=== PATIENT | male | born 1955 | race Caucasian/White ===

== ENCOUNTER → 2017-09-14 16:03 | Outpatient (CLI) | payer OTHER, SELFPAY ==
--- NOTE | 2017-09-14 16:06 | DI.RAD.S_ITS ---
PROCEDURE: XR FOOT RT MIN 3V INDICATIONS: heel pain TECHNIQUE: 3 views of the foot were acquired. COMPARISON: None. FINDINGS: Bones: No fractures or dislocations. No suspicious bony lesions. Calcaneal spur is noted. Mild degenerative changes. Soft tissues: No tibiotalar joint effusion. Achilles tendon appears normal. IMPRESSION: No visualized acute fracture or dislocation. However, if clinical concern and/or pain persist, short interval imaging followup in 7-10 days is recommended, as occult injury cannot be definitively excluded. Dictated by: Anna Delgado M.D. on 09/14/2017 at 16:27 Approved by: Anna Delgado M.D. on 09/14/2017 at 16:28
== END ==
PROVIDERS: Family Provider Family Medicine; PCP Family Medicine; Visit Provider Family Medicine
DX: M79.671 Pain in right foot (principal); M77.31 Calcaneal spur, right foot
CPT/HCPCS: 73630

== ENCOUNTER → 2017-09-15 09:28 | Outpatient (CLI) | payer OTHER, SELFPAY ==
[2017-09-15 10:47] LABS: Add Manual Diff / Slide Review NO; Basophils Percent Auto 0.5 % (0-2); Eosinophils Percent Auto 3.4 % (2-4); Hematocrit 43.8 % (41-53); Hemoglobin 15.2 g/dL (13.5-17.5); Lymphocytes Percent Auto 30.4 % (25-40); Mean Corpuscular HGB Conc 34.8 % (30-36); Mean Corpuscular Hemoglobin 30.3 PG (26-34); Mean Corpuscular Volume 87.3 fL (80-100); Neutrophils Absolute Auto 3600 /uL (3000-5900); Neutrophils Percent Auto 53.7 % (50-75); Platelet Count 237 X10^3/uL (150-400); Red Blood Cell Count 5.02 X10^6/uL (4.5-5.9); Red Cell Distribution Width 13.6 % (11.6-14.8); White Blood Cell Count 6.8 X10^3/uL (4.5-11.0)
[2017-09-15 10:49] LABS: Hemoglobin A1C% w Est Avg Glu 6.1 % (4.0-6.0)
[2017-09-15 11:04] LABS: Alanine Aminotransferase 40 IU/L (21-72); Albumin 4.6 g/dL (3.5-5.0); Albumin Globulin Ratio 1.4 (1.0-2.8); Alkaline Phosphatase 70 U/L (38-126); Aspartate Aminotransferase 27 IU/L (17-59); BUN Creatinine Ratio 37.1 (6-22); Bilirubin Total 0.7 mg/dL (0.2-1.3); Blood Urea Nitrogen 26 mg/dL (9-20); Calcium 9.3 mg/dL (8.4-10.2); Carbon Dioxide 24 mmol/L (22-32); Chloride 104 mmol/L (98-107); Cholesterol 132 mg/dL (140-199); Estimated Glomerular Filt Rate > 60.0 mL/min (>60); Globulin 3.2 g/dL (1.7-4.1); Glucose 115 mg/dL (80-110); HDL Cholesterol 36 mg/dL (40-60); HEMOLYSIS 15 (0-50); LDL Cholesterol Calculated 78 mg/dL (<100); Potassium 4.3 mmol/L (3.4-5.1); Sodium 140 mmol/L (137-145); Total Protein 7.8 g/dL (6.3-8.2); Triglycerides 90 mg/dL (35-150)
[2017-09-15 11:46] LABS: Thyroid Stimulating Hormone 2.69 uIU/mL (0.47-4.68)
[2017-09-19 18:21] LABS: Rapid Plasma Reagin NON-REACTIVE
== END ==
PROVIDERS: Family Provider Family Medicine; PCP Family Medicine; Visit Provider Family Medicine
DX: E78.2 Mixed hyperlipidemia (principal)
CPT/HCPCS: 36415; 80053; 80061; 83036; 84443; 85025; 86592

== ENCOUNTER → 2017-12-17 09:58 | Outpatient (CLI) | payer OTHER, SELFPAY ==
[2017-12-17 10:27] LABS: Alanine Aminotransferase 41 IU/L (21-72); Albumin 4.9 g/dL (3.5-5.0); Albumin Globulin Ratio 1.5 (1.0-2.8); Alkaline Phosphatase 83 U/L (38-126); Aspartate Aminotransferase 27 IU/L (17-59); Bilirubin Total 0.9 mg/dL (0.2-1.3); Blood Urea Nitrogen 24 mg/dL (9-20); Calcium 9.5 mg/dL (8.4-10.2); Carbon Dioxide 28 mmol/L (22-32); Chloride 103 mmol/L (98-107); Estimated Glomerular Filt Rate > 60.0 mL/min (>60); Globulin 3.3 g/dL (1.7-4.1); Glucose 117 mg/dL (80-110); HEMOLYSIS < 15 (0-50); Potassium 4.6 mmol/L (3.4-5.1); Sodium 142 mmol/L (137-145); Total Protein 8.2 g/dL (6.3-8.2)
== END ==
PROVIDERS: Family Provider Family Medicine; PCP Family Medicine; Visit Provider Family Medicine
DX: E11.9 Type 2 diabetes mellitus without complications (principal); E78.2 Mixed hyperlipidemia; I10 Essential (primary) hypertension
CPT/HCPCS: 36415; 80053; 83036

== ENCOUNTER → 2018-03-03 13:01 | Outpatient (CLI) | payer OTHER, SELFPAY ==
[2018-03-03 14:14] LABS: Cholesterol 168 mg/dL (140-199); HDL Cholesterol 39 mg/dL (40-60); LDL Cholesterol Calculated 85 mg/dL (<100); Triglycerides 219 mg/dL (35-150)
[2018-03-03 14:46] LABS: Prostate Specific Antigen 0.801 ng/mL (0.10-4.00)
== END ==
PROVIDERS: PCP Family Medicine; Visit Provider Family Medicine
DX: E78.2 Mixed hyperlipidemia (principal); I10 Essential (primary) hypertension; R73.09 Other abnormal glucose; Z12.5 Encounter for screening for malignant neoplasm of prostate
CPT/HCPCS: 36415; 80061; 83036; 84153

== ENCOUNTER → 2018-07-07 10:52 | Outpatient (CLI) | payer OTHER, SELFPAY ==
[2018-07-07 12:16] LABS: Hemoglobin A1C% w Est Avg Glu 6.1 % (4.0-6.0)
[2018-07-07 12:41] LABS: Glucose 93 mg/dL (80-110)
== END ==
PROVIDERS: Family Provider Family Medicine; PCP Family Medicine; Visit Provider Family Medicine
DX: R73.02 Impaired glucose tolerance (oral) (principal)
CPT/HCPCS: 36415; 82947; 83036

== ENCOUNTER → 2018-11-29 10:47 | Outpatient (CLI) | payer OTHER, SELFPAY | PROVIDERS: PCP Family Medicine; Visit Provider Family Medicine | DX: E11.9 Type 2 diabetes mellitus without complications (principal) | CPT/HCPCS: 36415; 83036 ==

== ENCOUNTER → 2019-04-05 09:45 | Outpatient (CLI) | payer MEDICARE, OTHER, SELFPAY ==
--- NOTE | 2019-04-05 09:51 | DI.RAD.S_ITS ---
PROCEDURE: XR LUMBAR SPINE MIN 4V INDICATIONS: Persistent and progressive lower back pain TECHNIQUE: 5 total views of the lumbar spine were acquired, including bilateral oblique views. COMPARISON: Merged With [facility], , L-SPINE 2-3 VIEWS, 10/13/2013, 11:49. FINDINGS: Bones: 5 nonrib-bearing vertebrae are present. There is minimal dextroconvex curvature. No focal AP alignment abnormality is seen. There is a mild anterior wedge deformity seen at T12, with approximate 20% loss of height anteriorly. Bridging anterior osteophytes can be seen at T12-L1. No acute appearing vertebral body compression fractures. No suspicious bony lesions. The disc heights are relatively well-preserved. Mild endplate irregularity and sclerosis can be seen inferiorly. Lower lumbar spine facet arthropathy is seen. There is moderate disc space narrowing at L5-S1. The disc heights otherwise appear well-preserved. Soft tissues: Overlying bowel gas pattern is normal. No suspicious soft tissue calcifications. Oblique images: No pars defects. IMPRESSION: No pars defects are seen. Moderate disc space narrowing is seen at L5-S1. Remote T12 anterior wedge deformity. Dictated by: Salinas Marks M.D. on 04/05/2019 at 11:15 Approved by: Salinas Marks M.D. on 04/05/2019 at 11:17
[2019-04-05 11:53] LABS: Hemoglobin A1C% w Est Avg Glu 6.4 % (4.0-6.0)
[2019-04-05 12:28] LABS: Alanine Aminotransferase 43 IU/L (<50); Albumin 4.8 g/dL (3.5-5.0); Albumin Globulin Ratio 1.5 (1.0-2.8); Alkaline Phosphatase 85 U/L (38-126); Aspartate Aminotransferase 32 IU/L (17-59); BUN Creatinine Ratio 22.5 (6-22); Bilirubin Total 0.6 mg/dL (0.2-1.3); Blood Urea Nitrogen 18 mg/dL (9-20); Calcium 9.6 mg/dL (8.4-10.2); Carbon Dioxide 27 mmol/L (22-32); Chloride 100 mmol/L (98-107); Estimated Glomerular Filt Rate > 60.0 mL/min (>60); Globulin 3.2 g/dL (1.7-4.1); Glucose 105 mg/dL (80-110); HEMOLYSIS < 15 (0-50); Potassium 4.4 mmol/L (3.4-5.1); Sodium 139 mmol/L (137-145)
== END ==
PROVIDERS: PCP Family Medicine; Referring Provider Family Medicine; Visit Provider Family Medicine
DX: M54.5 Low back pain (principal); E11.9 Type 2 diabetes mellitus without complications
CPT/HCPCS: 36415; 72110; 80053; 83036

== ENCOUNTER → 2019-12-23 11:37 | Outpatient (CLI) | payer MEDICARE, OTHER, SELFPAY ==
[2019-12-23 12:20] LABS: Add Manual Diff / Slide Review NO; Basophils Absolute Auto 0 /uL (0-100); Basophils Percent Auto 0.7 % (0-2); Eosinophils Absolute Auto 100 /uL (0-450); Eosinophils Percent Auto 2.1 % (2-4); Hematocrit 44.2 % (41-53); Hemoglobin 15.1 g/dL (13.5-17.5); Lymphocytes Absolute Auto 1600 /uL (1100-4500); Lymphocytes Percent Auto 30.7 % (25-40); Mean Corpuscular HGB Conc 34.2 % (30-36); Mean Corpuscular Hemoglobin 30.5 PG (26-34); Mean Corpuscular Volume 89.2 fL (80-100); Monocytes Absolute Auto 700 /uL (0-900); Monocytes Percent Auto 13.3 % (3-14); Neutrophils Absolute Auto 2700 /uL (1500-7000); Neutrophils Percent Auto 53.2 % (50-75); Platelet Count 228 X10^3/uL (150-400); Red Blood Cell Count 4.95 X10^6/uL (4.5-5.9); Red Cell Distribution Width 13.7 % (11.6-14.8); White Blood Cell Count 5.2 X10^3/uL (4.5-11.0)
[2019-12-23 12:48] LABS: Alanine Aminotransferase 43 IU/L (<50); Albumin 4.7 g/dL (3.5-5.0); Albumin Globulin Ratio 1.5 (1.0-2.8); Alkaline Phosphatase 74 U/L (38-126); Aspartate Aminotransferase 31 IU/L (17-59); BUN Creatinine Ratio 41.9 (6-22); Bilirubin Total 0.8 mg/dL (0.2-1.3); Blood Urea Nitrogen 31 mg/dL (9-20); Carbon Dioxide 27 mmol/L (22-32); Chloride 105 mmol/L (98-107); Cholesterol 142 mg/dL (140-199); Estimated Glomerular Filt Rate > 60.0 mL/min (>60); Globulin 3.2 g/dL (1.7-4.1); Glucose 110 mg/dL (80-110); HDL Cholesterol 37 mg/dL (40-60); HEMOLYSIS < 15 (0-50); LDL Cholesterol Calculated 85 mg/dL (<100); Potassium 4.4 mmol/L (3.4-5.1); Sodium 138 mmol/L (137-145); Total Protein 7.9 g/dL (6.3-8.2); Triglycerides 101 mg/dL (35-150)
[2019-12-23 13:16] LABS: Prostate Specific Antigen Scrn 0.778 ng/mL (0.1-4.0); TSH w/ Reflex to FT4 2.15 uIU/mL (0.47-4.68)
[2019-12-23 14:19] LABS: Hemoglobin A1C% w Est Avg Glu 6.4 % (4.0-6.0)
== END ==
PROVIDERS: PCP Family Medicine; Referring Provider Family Medicine; Visit Provider Family Medicine
DX: Z00.00 Encounter for general adult medical examination without abnormal findings (principal); Z12.5 Encounter for screening for malignant neoplasm of prostate
CPT/HCPCS: 36415; 80053; 80061; 83036; 84443; 85025; G0103

== ENCOUNTER → 2020-03-23 09:49 | Outpatient (CLI) | payer MEDICARE, OTHER, SELFPAY ==
[2020-03-23] MEDS: COVID-19 VACC #1, MRNA(MOD) 100 MCG/0.5 ML VIAL IM (09:56)
== END ==
PROVIDERS: PCP Family Medicine; Visit Provider Internal Medicine
DX: Z23 Encounter for immunization (principal)
CPT/HCPCS: 0011A; 91301

== ENCOUNTER → 2020-04-20 09:11 | Outpatient (CLI) | payer MEDICARE, OTHER, SELFPAY ==
[2020-04-20] MEDS: COVID-19 VACC #2, MRNA(MOD) 100 MCG/0.5 ML VIAL IM (09:14)
== END ==
PROVIDERS: PCP Family Medicine; Visit Provider Internal Medicine
DX: Z23 Encounter for immunization (principal)
CPT/HCPCS: 0012A; 91301

== ENCOUNTER → 2021-05-02 07:22 | Outpatient (CLI) | payer MEDICARE, OTHER, SELFPAY ==
[2021-05-02 08:25] LABS: Appearance Urine UA CLEAR; Bilirubin Urine UA NEGATIVE (NEGATIVE); Color Urine UA YELLOW; Glucose Urine UA NEGATIVE (Negative); Ketones Urine UA NEGATIVE (NEGATIVE); Leukocyte Esterase Urine UA NEGATIVE (NEGATIVE); Nitrite Urine UA NEGATIVE (Negative); Occult Blood Urine UA NEGATIVE (Negative); Protein Urine UA NEGATIVE (Negative); Urobilinogen Urine UA 0.2 E.U./dL (0.2)
[2021-05-02 08:36] LABS: Alanine Aminotransferase 36 IU/L (<50); Albumin 4.6 g/dL (3.5-5.0); Albumin Globulin Ratio 1.5 (1.0-2.8); Alkaline Phosphatase 69 U/L (38-126); Aspartate Aminotransferase 29 IU/L (17-59); BUN Creatinine Ratio 24.4 (6-22); Bilirubin Total 0.7 mg/dL (0.2-1.3); Blood Urea Nitrogen 20 mg/dL (9-20); Calcium 9.2 mg/dL (8.4-10.2); Carbon Dioxide 24 mmol/L (22-32); Chloride 106 mmol/L (98-107); Estimated Glomerular Filt Rate > 60.0 mL/min (>60); Glucose 130 mg/dL (80-110); HEMOLYSIS < 15 (0-50); Potassium 4.6 mmol/L (3.4-5.1); Sodium 139 mmol/L (137-145); Total Protein 7.6 g/dL (6.3-8.2)
[2021-05-02 09:17] LABS: Hemoglobin A1C% w Est Avg Glu 6.4 % (4.0-6.0)
== END ==
PROVIDERS: PCP Family Medicine; Referring Provider Family Medicine; Visit Provider Family Medicine
DX: E11.9 Type 2 diabetes mellitus without complications (principal); I10 Essential (primary) hypertension
CPT/HCPCS: 36415; 80053; 81003; 83036

== ENCOUNTER → 2021-05-07 09:04 | Outpatient (CLI) | payer MEDICARE, OTHER, SELFPAY ==
[2021-05-07 10:44] LABS: Add Manual Diff / Slide Review NO; Basophils Absolute Auto 0 /uL (0-100); Basophils Percent Auto 0.6 % (0-2); Eosinophils Absolute Auto 200 /uL (0-450); Eosinophils Percent Auto 3.5 % (2-4); Hematocrit 45.7 % (41-53); Hemoglobin 15.5 g/dL (13.5-17.5); Lymphocytes Absolute Auto 1700 /uL (1100-4500); Lymphocytes Percent Auto 26.7 % (25-40); Mean Corpuscular Volume 88.3 fL (80-100); Monocytes Absolute Auto 700 /uL (0-900); Neutrophils Absolute Auto 3700 /uL (1500-7000); Neutrophils Percent Auto 58.2 % (50-75); Platelet Count 254 X10^3/uL (150-400); Red Blood Cell Count 5.18 X10^6/uL (4.5-5.9); Red Cell Distribution Width 13.8 % (11.6-14.8); White Blood Cell Count 6.4 X10^3/uL (4.5-11.0)
[2021-05-07 11:01] LABS: Alanine Aminotransferase 37 IU/L (<50); Albumin 5.1 g/dL (3.5-5.0); Albumin Globulin Ratio 1.3 (1.0-2.8); Alkaline Phosphatase 71 U/L (38-126); Aspartate Aminotransferase 32 IU/L (17-59); BUN Creatinine Ratio 20.7 (6-22); Bilirubin Total 0.9 mg/dL (0.2-1.3); Blood Urea Nitrogen 18 mg/dL (9-20); Calcium 9.5 mg/dL (8.4-10.2); Carbon Dioxide 28 mmol/L (22-32); Chloride 104 mmol/L (98-107); Cholesterol 163 mg/dL (140-199); Estimated Glomerular Filt Rate > 60.0 mL/min (>60); Globulin 3.8 g/dL (1.7-4.1); Glucose 112 mg/dL (80-110); HDL Cholesterol 38 mg/dL (40-60); HEMOLYSIS < 15 (0-50); LDL Cholesterol Calculated 97 mg/dL (<100); Potassium 4.5 mmol/L (3.4-5.1); Sodium 139 mmol/L (137-145); Total Protein 8.9 g/dL (6.3-8.2); Triglycerides 141 mg/dL (35-150)
[2021-05-07 11:57] LABS: TSH w/ Reflex to FT4 2.68 uIU/mL (0.47-4.68)
[2021-05-12 16:29] LABS: Percent Free Testosterone 2.58 % (1.50-4.20); Testosterone Total 325.6 ng/dL (264.0-916.0)
== END ==
PROVIDERS: PCP Family Medicine; Referring Provider Family Medicine; Visit Provider Family Medicine
DX: E11.9 Type 2 diabetes mellitus without complications (principal); I10 Essential (primary) hypertension; E78.2 Mixed hyperlipidemia; R53.83 Other fatigue
CPT/HCPCS: 36415; 80053; 80061; 84402; 84403; 84443; 85025

== ENCOUNTER 2022-06-01 07:28 | Emergency (ER) | payer MEDICARE, OTHER, SELFPAY ==
[2022-06-01] VITALS (8 sets, daily range): BP systolic 158–182; BP diastolic 93–107; PULSE 63–71; RESP 18; TEMP 36.8; O2SAT 96–98; BMI 28.0
[2022-06-01 07:54] LABS: Add Manual Diff / Slide Review NO; Basophils Absolute Auto 0 /uL (0-100); Basophils Percent Auto 0.7 % (0-2); Eosinophils Absolute Auto 200 /uL (0-450); Eosinophils Percent Auto 2.5 % (2-4); Hematocrit 43.7 % (41-53); Hemoglobin 14.9 g/dL (13.5-17.5); Lymphocytes Absolute Auto 2000 /uL (1100-4500); Lymphocytes Percent Auto 28.3 % (25-40); Mean Corpuscular HGB Conc 34.2 % (30-36); Mean Corpuscular Hemoglobin 29.6 PG (26-34); Mean Corpuscular Volume 86.6 fL (80-100); Monocytes Absolute Auto 700 /uL (0-900); Monocytes Percent Auto 10.3 % (3-14); Neutrophils Absolute Auto 4100 /uL (1500-7000); Neutrophils Percent Auto 58.2 % (50-75); Platelet Count 228 X10^3/uL (150-400); Red Blood Cell Count 5.05 X10^6/uL (4.5-5.9); Red Cell Distribution Width 13.8 % (11.6-14.8); White Blood Cell Count 7.1 X10^3/uL (4.5-11.0)
[2022-06-01 08:05] LABS: Alanine Aminotransferase 31 IU/L (<50); Albumin 4.4 g/dL (3.5-5.0); Albumin Globulin Ratio 1.3 (1.0-2.8); Alkaline Phosphatase 82 U/L (38-126); Aspartate Aminotransferase 26 IU/L (17-59); BUN Creatinine Ratio 23.3 (6-22); Bilirubin Total 0.5 mg/dL (0.2-1.3); Blood Urea Nitrogen 17 mg/dL (9-20); Calcium 8.6 mg/dL (8.4-10.2); Carbon Dioxide 27 mmol/L (22-32); Chloride 104 mmol/L (98-107); Estimated Glomerular Filt Rate > 60 mL/min (>60); Globulin 3.5 g/dL (1.7-4.1); Glucose 119 mg/dL (80-110); HEMOLYSIS < 15 (0-50); Lipase 81 U/L (23-300); Potassium 4.2 mmol/L (3.4-5.1); Sodium 138 mmol/L (137-145); Total Protein 7.9 g/dL (6.3-8.2)
--- NOTE | 2022-06-01 08:16 | ED_ITS ---
HPI - Abdominal Pain General Chief Complaint: Abdominal Pain Stated Complaint: pain in left lower abdom for 3 days Time Seen by Provider: 06/01/22 08:05 Source: patient Mode of arrival: Family Vehicle History of Present Illness HPI narrative: This is a 66-year-old male with history of hypertension, dyslipidemia and chronic back pain with complaint of left lower abdominal pain for the past 3 days. Patient states it is very localized to 1 small area in the left lower abdomen. Patient states it has been slowly worsening it has not changed location. It does not radiate anywhere else. He denies fevers or chills. No nausea or vomiting. No chest pain or shortness of breath. No diarrhea, no black or bloody stools, normal bowel movements which he states he has been having on a regular basis. Denies dysuria, urgency frequency or hematuria. States no lumps or bumps. No rash or skin changes. Patient states he takes medication for his blood pressure, cholesterol and back. He is had a prior appendectomy. Denies any other surgeries. He denies tobacco, had a couple drinks last night but does not normally drink. He states he had these to see if it would help the pain. He denies any illicit. He is not taken anything for p ain today he defers anything for pain at this time. Related Data Previous Rx's Medication Instructions Recorded atenolol 50 mg tablet See Rx Instructions .Route 05/13/22 .COMPLEX #180 tabs gabapentin 300 mg capsule See Rx Instructions .Route 05/13/22 .COMPLEX #180 caps lovastatin 40 mg tablet See Rx Instructions .Route 05/13/22 .COMPLEX #180 tabs amoxicillin 875 mg-potassium 1 tab PO BID #20 tabs 06/01/22 clavulanate 125 mg tablet Allergies Allergy/AdvReac Type Severity Reaction Status Date / Time No Known Drug Allergies Allergy Verified 05/06/21 15:58 Review of Systems Review of Systems ROS Unobtainable: All systems reviewed & are unremarkable except as noted in HPI and below Patient History Medical History Fatigue Type 2 diabetes mellitus Well adult on routine health check Surgical History Anesthesia History of appendectomy (~2007) Social History Smoking Status: Never smoker Smoking Status: Never smoker alcohol intake frequency: holidays/special occasions only Substance Use Type: does not use Exam Narrative Exam Narrative: GENERAL: Alert and oriented x three, well-nourished male in mild distress. HEENT: Head normocephalic, atraumatic, EOMI, pupils reactive, face symmetric, moist mucous membranes NECK: Supple, full range of motion CARDIOVASCULAR: Regular rate and rhythm without murmurs, rubs or gallops. RESPIRATORY: Breath sounds equal bilaterally, no wheezes rales or rhonchi. ABDOMEN: Soft, mild generalized tenderness with moderate tenderness of the left lower quadrant. Patient is fairly localized but I am not able to easily palpate a hernia. Normoactive bowel sounds all 4 quadrants. No guarding or rebound, rigidity, no mass : No CVA tenderness EXTREMITIES: Normal range of motion, no clubbing or edema. Neurovascularly intact NEUROLOGICAL: Cranial nerves II through XII grossly intact. Moving all extremities SKIN: Warm, dry, no petechiae, no rashes or lesions. Initial Vital Signs Initial Vital Signs: Vital Signs Pulse Rate 71 06/01/22 07:33 Blood Pressure 175/107 H 06/01/22 07:33 Pulse Oximetry 98 06/01/22 07:33 Course Orders Ordered: Discontinued Medications Ondansetron HCl (Ondansetron 4 Mg Odt) 4 mg PO NOW PRN PRN Reason: Nausea And Vomiting Ondansetron HCl (Ondansetron 4 Mg/2 Ml Inj) 4 mg IV NOW PRN PRN Reason: Nausea And Vomiting Vital Signs Vital signs: Vital Signs - 8 hr 06/01/22 07:38 06/01/22 07:33 06/01/22 07:33 Temperature 98.2 F Pulse Rate 70 71 Respiratory Rate 18 Blood Pressure 175/107 H 175/107 H Pulse Oximetry 98 98 Oxygen Delivery Method Room Air 06/01/22 08:14 06/01/22 08:14 06/01/22 08:30 Temperature Pulse Rate 64 67 Respiratory Rate Blood Pressure 158/93 H Pulse Oximetry 97 98 Oxygen Delivery Method 06/01/22 09:00 Temperature Pulse Rate 63 Respiratory Rate Blood Pressure Pulse Oximetry 96 Oxygen Delivery Method MDM - Abdominal Pain Lab Data 06/01/22 07:41 06/01/22 07:41 Labs: Lab Results 06/01/22 06/01/22 Range/Units 07:41 07:41 WBC 7.1 (4.5-11.0) X10^3/uL RBC 5.05 (4.5-5.9) X10^6/uL Hgb 14.9 (13.5-17.5) g/dL Hct 43.7 (41-53) % MCV 86.6 (80-100) fL MCH 29.6 (26-34) PG MCHC 34.2 (30-36) % RDW 13.8 (11.6-14.8) % Plt Count 228 (150-400) X10^3/uL Neut % (Auto) 58.2 (50-75) % Lymph % (Auto) 28.3 (25-40) % [place] % (Auto) 10.3 (3-14) % Eos % (Auto) 2.5 (2-4) % Baso % (Auto) 0.7 (0-2) % Neut # (Auto) 4100 (6878-3465) /uL Lymph # (Auto) 2000 (6161-2532) /uL Glades # (Auto) 700 (0-900) /uL Eos # (Auto) 200 (0-450) /uL Baso # (Auto) 0 (0-100) /uL Sodium 138 (137-145) mmol/L Potassium 4.2 (3.4-5.1) mmol/L Chloride 104 (98-107) mmol/L Carbon Dioxide 27 (22-32) mmol/L BUN 17 (9-20) mg/dL Creatinine 0.73 (0.66-1.25) mg/dL Estimated GFR > 60 (>60) mL/min BUN/Creatinine Ratio 23.3 H (6-22) Glucose 119 H (80-110) mg/dL Calcium 8.6 (8.4-10.2) mg/dL Total Bilirubin 0.5 (0.2-1.3) mg/dL AST 26 (17-59) IU/L ALT 31 (<50) IU/L Alkaline Phosphatase 82 (38-126) U/L Total Protein 7.9 (6.3-8.2) g/dL Albumin 4.4 (3.5-5.0) g/dL Globulin 3.5 (1.7-4.1) g/dL Albumin/Globulin Ratio 1.3 (1.0-2.8) Lipase 81 (23-300) U/L Point of care testing: Urine Dip Bedside Urine Glucose Negative Bedside Urine Bilirubin - Negative Bedside Urine Ketone - Negative Urine Specific [place] 1.020 Bedside Urine Occult Blood - Negative Bedside Urine pH 6.0 Bedside Urine Protein - Negative Bedside Urine Urobilinogen - Negative Bedside Urine Nitrite - Negative Bedside Urine Leukocytes - Negative Esterase Imaging Data CT scan - abdomen/pelvis: Radiologist's Impression: [address] [address] [address] Scan Report Signed Patient: Conor Patterson MR#: [id number] : 1955 Acct:[id number] Age/Sex: 66 / M Date of Service: 06/01/22 Loc: ED Accession Number: [id number] ?? Procedure: CT abdomen pelvis w con Ordering Provider: Whit Castillo D.O. PROCEDURE:? CT ABDOMEN PELVIS W CON ? INDICATIONS:? LLQ pain x 3 days, ? diverticulitis ? TECHNIQUE:? After the administration of oral and IV contrast, axial sections were acquired from the lung bases to the pubic symphysis.? Coronal and sagittal reformats were performed.? For radiation dose reduction, the following was used:? automated exposure control, adjustment of mA and/or kV according to patient size. ? COMPARISON:? [facility], CT, ABDOMEN WITH CONTRAST, 11/09/2006, 8:30.? [facility], RG, CT ABDOMEN/PELVIS, 05/12/2003, 9:48.? [facility], CR, XR LUMBAR SPINE MIN 4V, 04/05/2019, 9:53. ? FINDINGS:? Image quality:? Excellent.? ? Lung bases:? Unremarkable.? ? Heart:? No significant findings. ? ? ABDOMEN: Liver: Diffuse fatty liver infiltration is noted.? Gallbladder:? Unremarkable.? ? Biliary ducts:? Unremarkable.? ? Pancreas:? Unremarkable.? ? Spleen:? Unremarkable.? ? Incidental note is made of an accessory splenule along the hilum of the primary spleen. Adrenal Glands:? Unremarkable.? ? Kidneys and Ureters:? Unremarkable.? ? ? Stomach and Bowel:? There is a small amount of fatty stranding seen adjacent to the distal descending colon, with mild wall thickening.? Diverticular formation can be seen within this region. The colon is otherwise unremarkable. No dilated loops of small bowel are seen. The stomach is decompressed, limiting its evaluation. Prior appendectomy. Peritoneum:? No abnormal intraperitoneal fluid.? No free air.? ? Ventral Wall: ? No hernia.? Abdominal Nodes:? No retroperitoneal or mesenteric adenopathy by size criteria.? Vessels:? Aorta and inferior vena cava are normal in size.? Incidental note is made of a circumaortic left renal vein.? ? PELVIS: Pelvic Organs:? Unremarkable.? ? Bladder:? Unremarkable.? ? Pelvic Nodes: No enlarged lymph nodes.? Miscellaneous: No inguinal hernias are seen. ? ? ? Bones:? There is a remote T12 anterior wedge deformity, with approximately 20% loss of height anteriorly.? Age-appropriate bony degenerative changes are seen.? ? ? IMPRESSION:? ? Mild distal descending colon diverticulitis, without findings of perforation or abscess. ? When clinically appropriate (following adequate treatment of the patient's current clinical episode) a colonoscopy is recommended for further evaluation for a potential underlying mass (if not already recently done). ? ? ? Additional findings:? Remote T12 anterior wedge deformity Fatty liver infiltration Accessory splenule Circumaortic left renal vein Prior appendectomy ? Dictated by: Salinas Marks M.D. on 06/01/2022 at 8:22 ? ? Approved by: Salinas Marks M.D. on 06/01/2022 at 8:25?? MDM Narrative Medical decision making narrative: This is a 66-year-old male who presents with left lower quadrant tenderness for the past 3 days. Patient states it has been slowly worsening. He denies any other current symptoms. He states it is quite localized can localize it pretty well on exam but can not feel a hernia or palpable mass. Suspect diverticulitis although hernia still in the differential. Discussed with patient labs show CBC, CMP and lipase and urine without any clear source of symptoms. Feel it would be appropriate for additional imaging to evaluate for diverticulitis, hernia versus other cause. Imaging shows left-sided diverticulitis, also incidentally noted are fatty liver, accessory splenule, circumaortic left renal vessel and T12 compression fracture. Patient and I reviewed all of this. Discussed dietary changes, plan for antibiotics. Patient states he will follow up with the pharmacy and pick his up this morning to start. Pain management and return precautions. Discharge Plan Departure Patient Disposition: Home Clinical Impression: Diverticulitis Instructions: DI for Diverticulitis Activity Restrictions/Additional Instructions: Follow-up for recheck if your symptoms are not improving in the next week. Your imaging does show some diverticulitis on the left, you do have an old T12 compression fracture, and accessory splenule and a left renal vein (that goes around the) circumaortic and fatty liver noted on your imaging. You can take Tylenol up to a 1000 mg every 6 hours as needed and/or ibuprofen up to 600 mg every 6 hours. Take antibiotics until completely gone. Prescription sent to [facility] in [place]. Please return for fevers, new or worsening abdominal back or flank pain, persistent vomiting, black or bloody stools or other new or concerning changes. Prescriptions: New amoxicillin-pot clavulanate 875-125 mg tablet 1 tab PO BID Qty: 20 0RF No Action atenolol 50 mg tablet See Rx Instructions .ROUTE .COMPLEX Qty: 180 0RF Dose Instruction: TAKE 1 TABLET BY MOUTH TWICE DAILY Rx Instructions: TAKE 1 TABLET BY MOUTH TWICE DAILY NEEDS APPT WITH PCP gabapentin 300 mg capsule See Rx Instructions .ROUTE .COMPLEX Qty: 180 0RF Dose Instruction: TAKE 1 CAPSULE BY MOUTH TWICE DAILY Rx Instructions: TAKE 1 CAPSULE BY MOUTH TWICE DAILY NEEDS APPT WITH PCP lovastatin 40 mg tablet See Rx Instructions .ROUTE .COMPLEX Qty: 180 0RF Dose Instruction: TAKE 2 TABLETS BY MOUTH DAILY Rx Instructions: TAKE 2 TABLETS BY MOUTH DAILY NEEDS APPT WITH PCP Referrals: Lalit Edwards DO [Primary Care Provider] - Stand Alone Forms: Patient Portal/API
--- NOTE | 2022-06-01 08:30 | DI.CT.S_ITS ---
PROCEDURE: CT ABDOMEN PELVIS W CON INDICATIONS: LLQ pain x 3 days, ? diverticulitis TECHNIQUE: After the administration of oral and IV contrast, axial sections were acquired from the lung bases to the pubic symphysis. Coronal and sagittal reformats were performed. For radiation dose reduction, the following was used: automated exposure control, adjustment of mA and/or kV according to patient size. COMPARISON: [facility], CT, ABDOMEN WITH CONTRAST, 11/09/2006, 8:30. [facility], RG, CT ABDOMEN/PELVIS, 05/12/2003, 9:48. [facility], CR, XR LUMBAR SPINE MIN 4V, 04/05/2019, 9:53. FINDINGS: Image quality: Excellent. Lung bases: Unremarkable. Heart: No significant findings. ABDOMEN: Liver: Diffuse fatty liver infiltration is noted. Gallbladder: Unremarkable. Biliary ducts: Unremarkable. Pancreas: Unremarkable. Spleen: Unremarkable. Incidental note is made of an accessory splenule along the hilum of the primary spleen. Adrenal Glands: Unremarkable. Kidneys and Ureters: Unremarkable. Stomach and Bowel: There is a small amount of fatty stranding seen adjacent to the distal descending colon, with mild wall thickening. Diverticular formation can be seen within this region. The colon is otherwise unremarkable. No dilated loops of small bowel are seen. The stomach is decompressed, limiting its evaluation. Prior appendectomy. Peritoneum: No abnormal intraperitoneal fluid. No free air. Ventral Wall: No hernia. Abdominal Nodes: No retroperitoneal or mesenteric adenopathy by size criteria. Vessels: Aorta and inferior vena cava are normal in size. Incidental note is made of a circumaortic left renal vein. PELVIS: Pelvic Organs: Unremarkable. Bladder: Unremarkable. Pelvic Nodes: No enlarged lymph nodes. Miscellaneous: No inguinal hernias are seen. Bones: There is a remote T12 anterior wedge deformity, with approximately 20% loss of height anteriorly. Age-appropriate bony degenerative changes are seen. IMPRESSION: Mild distal descending colon diverticulitis, without findings of perforation or abscess. When clinically appropriate (following adequate treatment of the patient's current clinical episode) a colonoscopy is recommended for further evaluation for a potential underlying mass (if not already recently done). Additional findings: Remote T12 anterior wedge deformity Fatty liver infiltration Accessory splenule Circumaortic left renal vein Prior appendectomy Dictated by: Salinas Marks M.D. on 06/01/2022 at 8:22 Approved by: Salinas Marks M.D. on 06/01/2022 at 8:25
== END 2022-06-01 10:26 | disposition home or self-care (01) ==
PROVIDERS: Emergency Provider Emergency Medicine; PCP Family Medicine
DX: K57.92 Diverticulitis of intestine, part unspecified, without perforation or abscess without bleeding (principal)
CPT/HCPCS: 36415; 74177; 80053; 81003; 83690; 85025; 99284; Q9967

== ENCOUNTER → 2022-07-01 09:30 | Outpatient (CLI) | payer MEDICARE, OTHER, SELFPAY ==
[2022-07-01 12:30] LABS: Vitamin D 25 Hydroxy (D3) 26.1 ng/mL (30.0-100.0)
[2022-07-01 14:24] LABS: HEMOLYSIS < 15 (0-50)
[2022-07-01 14:25] LABS: Alanine Aminotransferase 38 IU/L (<50); Albumin 4.6 g/dL (3.5-5.0); Albumin Globulin Ratio 1.5 (1.0-2.8); Alkaline Phosphatase 77 U/L (38-126); Aspartate Aminotransferase 30 IU/L (17-59); BUN Creatinine Ratio 23.3 (6-22); Bilirubin Total 1.2 mg/dL (0.2-1.3); Blood Urea Nitrogen 17 mg/dL (9-20); Calcium 9.5 mg/dL (8.4-10.2); Carbon Dioxide 24 mmol/L (22-32); Chloride 103 mmol/L (98-107); Estimated Glomerular Filt Rate > 60 mL/min (>60); Glucose 100 mg/dL (80-110); Potassium 4.5 mmol/L (3.4-5.1); Sodium 138 mmol/L (137-145); Total Protein 7.6 g/dL (6.3-8.2)
[2022-07-01 15:48] LABS: Prostate Specific Antigen Scrn 0.784 ng/mL (0.1-4.0)
[2022-07-01 17:20] LABS: TSH w/ Reflex to FT4 2.27 uIU/mL (0.47-4.68)
[2022-07-02 05:13] LABS: Labcorp Hemoglobin (Hb) A1c 6.3 % (4.8-5.6)
[2022-07-07 14:12] LABS: Percent Free Testosterone 1.01 % (1.50-4.20); Testosterone Free 3.41 ng/dL (5.00-21.00); Testosterone Total 337.8 ng/dL (264.0-916.0)
== END ==
PROVIDERS: PCP Family Medicine; Referring Provider Family Medicine; Visit Provider Family Medicine
DX: Z12.5 Encounter for screening for malignant neoplasm of prostate; E78.2 Mixed hyperlipidemia; E55.9 Vitamin D deficiency, unspecified; R53.83 Other fatigue; Z00.00 Encounter for general adult medical examination without abnormal findings; I10 Essential (primary) hypertension; E11.9 Type 2 diabetes mellitus without complications
CPT/HCPCS: 36415; 80053; 82306; 83036; 84402; 84403; 84443; G0103

== ENCOUNTER → 2022-11-28 13:02 | Outpatient (CLI) | payer MEDICARE, OTHER, SELFPAY ==
[2022-11-28 15:10] LABS: Hemoglobin A1C% w Est Avg Glu 6.1 % (4.0-6.0)
[2022-11-28 15:43] LABS: Vitamin D 25 Hydroxy (D3) 31.7 ng/mL (30.0-100.0)
[2022-11-28 18:19] LABS: Alanine Aminotransferase 39 IU/L (<50); Albumin 4.5 g/dL (3.5-5.0); Albumin Globulin Ratio 1.4 (1.0-2.8); Alkaline Phosphatase 73 U/L (38-126); Aspartate Aminotransferase 30 IU/L (17-59); Blood Urea Nitrogen 15 mg/dL (9-20); Calcium 9.3 mg/dL (8.4-10.2); Carbon Dioxide 23 mmol/L (22-32); Chloride 104 mmol/L (98-107); Cholesterol 158 mg/dL (140-199); Estimated Glomerular Filt Rate > 60 mL/min (>60); Globulin 3.3 g/dL (1.7-4.1); Glucose 88 mg/dL (80-110); HDL Cholesterol 34 mg/dL (40-60); HEMOLYSIS < 15 (0-50); LDL Cholesterol Calculated 86 mg/dL (<100); Potassium 4.6 mmol/L (3.4-5.1); Sodium 139 mmol/L (137-145); Total Protein 7.8 g/dL (6.3-8.2); Triglycerides 190 mg/dL (35-150)
[2022-12-05 12:50] LABS: Percent Free Testosterone 2.17 % (1.50-4.20); Testosterone Free 7.55 ng/dL (5.00-21.00); Testosterone Total 347.7 ng/dL (264.0-916.0)
== END ==
PROVIDERS: PCP Family Medicine; Referring Provider Family Medicine; Visit Provider Family Medicine
DX: E11.9 Type 2 diabetes mellitus without complications (principal); E55.9 Vitamin D deficiency, unspecified; E78.2 Mixed hyperlipidemia; I10 Essential (primary) hypertension; R79.89 Other specified abnormal findings of blood chemistry
CPT/HCPCS: 36415; 80053; 80061; 82306; 83036; 84402; 84403

== ENCOUNTER → 2022-12-10 18:59 | Outpatient (CLI) | payer MEDICARE, OTHER, SELFPAY | PROVIDERS: PCP Family Medicine; Visit Provider Student in an Organized Health Care Education/Training Program | DX: L02.91 Cutaneous abscess, unspecified (principal) | CPT/HCPCS: 87070; 87075; 87077; 87147; 87205 ==

== ENCOUNTER 2023-03-03 13:42 | Inpatient (IN) | payer MEDICARE, OTHER, SELFPAY ==
[2023-03-03] VITALS (48 sets, daily range): BP systolic 97–150; BP diastolic 60–101; PULSE 46–154; RESP 14–31; TEMP 36.3–37.3; O2SAT 87–98; BMI 28.0
--- NOTE | 2023-03-03 14:13 | DI.RAD.S_ITS ---
PROCEDURE: XR CHEST 1V INDICATIONS: chest pain TECHNIQUE: One view of the chest was acquired. COMPARISON: None. FINDINGS: Surgical changes and devices: None. Lungs and pleura: Lungs are clear. No pleural effusions or pneumothorax. Mediastinum: Mediastinal contours appear normal. Heart size is normal. Bones and chest wall: No suspicious bony lesions. Overlying soft tissues appear unremarkable. IMPRESSION: No acute cardiopulmonary abnormality is seen. Dictated by: Eva Winchester M.D. on 03/03/2023 at 15:11 Approved by: Eva Winchester M.D. on 03/03/2023 at 15:12
[2023-03-03 14:14] LABS: Add Manual Diff / Slide Review NO; Basophils Absolute Auto 100 /uL (0-100); Basophils Percent Auto 1.1 % (0-2); Eosinophils Absolute Auto 200 /uL (0-450); Eosinophils Percent Auto 2.2 % (2-4); Hematocrit 44.3 % (41-53); Hemoglobin 15.2 g/dL (13.5-17.5); Lymphocytes Absolute Auto 2400 /uL (1100-4500); Lymphocytes Percent Auto 29.9 % (25-40); Mean Corpuscular HGB Conc 34.4 % (30-36); Mean Corpuscular Hemoglobin 30.4 PG (26-34); Mean Corpuscular Volume 88.2 fL (80-100); Monocytes Absolute Auto 1000 /uL (0-900); Monocytes Percent Auto 12.3 % (3-14); Neutrophils Absolute Auto 4400 /uL (1500-7000); Neutrophils Percent Auto 54.5 % (50-75); Platelet Count 307 X10^3/uL (150-400); Red Blood Cell Count 5.02 X10^6/uL (4.5-5.9); Red Cell Distribution Width 13.9 % (11.6-14.8); White Blood Cell Count 8.1 X10^3/uL (4.5-11.0)
--- NOTE | 2023-03-03 14:18 | DI.CT.S_ITS ---
PROCEDURE: CT ABDOMEN PELVIS W CON INDICATIONS: severe left lower quad pain hx diverticulitis, new afib TECHNIQUE: After the administration of intravenous contrast, axial sections acquired from the lung bases to the pubic symphysis. Coronal and sagittal reformats were performed. For radiation dose reduction, the following was used: automated exposure control, adjustment of mA and/or kV according to patient size. COMPARISON: [facility], CT, CT ABDOMEN PELVIS W CON, 06/01/2022, 8:40. FINDINGS: Image quality: Diagnostic. Of note, this is an arterial phase study. Lower Chest: No significant findings. ABDOMEN: Liver: No solid mass. Gallbladder: Unremarkable. Biliary ducts: No biliary dilation. Pancreas: No ductal dilation. Spleen: Size is within normal limits. Adrenal Glands: No adrenal nodules. Kidneys and Ureters: The right kidney demonstrates normal size and enhancement. No right hydronephrosis, perinephric fat stranding or nephrolithiasis. There is a slightly delayed left nephrogram. There is mild left hydronephrosis and mild left perinephric fat stranding. The left ureter is mildly dilated throughout its course. A 3 mm calculus is present within the inferior left ureter (series 2/image 78). Stomach and Bowel: Normal colonic caliber, without significant wall thickening. The appendix is not visualized; however surgical clips are present in the region of the cecum in the lower quadrant suggesting prior appendectomy. Peritoneum: No abnormal intraperitoneal fluid. No free air. Ventral Wall: No hernia. Abdominal Nodes: No retroperitoneal or mesenteric adenopathy by size criteria. Vessels: Aorta and inferior vena cava are normal in size. PELVIS: Pelvic Organs: Unremarkable. Bladder: Unremarkable. Pelvic Nodes: No enlarged lymph nodes. Miscellaneous: No inguinal hernias are seen. Bones: No aggressive osseous abnormality. IMPRESSION: 1. Left ureterolithiasis with mild left hydronephrosis and slightly delayed left nephrogram. 2. No other acute intra-abdominal findings. Probable prior appendectomy. Dictated by: Eva Winchester M.D. on 03/03/2023 at 15:14 Approved by: Eva Winchester M.D. on 03/03/2023 at 15:18
[2023-03-03 14:20] LABS: Alanine Aminotransferase 45 IU/L (<50); Albumin 4.4 g/dL (3.5-5.0); Albumin Globulin Ratio 1.2 (1.0-2.8); Alkaline Phosphatase 63 U/L (38-126); BUN Creatinine Ratio 18.1 (6-22); Bilirubin Total 0.8 mg/dL (0.2-1.3); Blood Urea Nitrogen 23 mg/dL (9-20); Calcium 9.2 mg/dL (8.4-10.2); Carbon Dioxide 27 mmol/L (22-32); Chloride 104 mmol/L (98-107); Estimated Glomerular Filt Rate > 60 mL/min (>60); Globulin 3.6 g/dL (1.7-4.1); Glucose 121 mg/dL (80-110); HEMOLYSIS 41 (0-50); Lipase 111 U/L (23-300); Potassium 4.2 mmol/L (3.4-5.1); Sodium 139 mmol/L (137-145)
[2023-03-03] MEDS: SODIUM CHLORIDE 0.9% 1,000 ML 1000 ML IV (14:24)
[2023-03-03] MEDS: HYDROMORPHONE 0.5 MG INJ IV ×2 (14:24→15:13)
[2023-03-03] MEDS: ONDANSETRON 4 MG/2 ML INJ IV (14:30)
--- NOTE | 2023-03-03 14:54 | ED_ITS ---
HPI - Abdominal Pain General Chief Complaint: Abdominal Pain Stated Complaint: ABD Pain/Hx Diverticulitis Time Seen by Provider: 03/03/23 14:00 Source: patient Mode of arrival: Ambulatory History of Present Illness HPI narrative: Patient 67-year-old male with history of type 2 diabetes presenting today with left lower quadrant pain. He reports that he has not been feeling well for the last couple of weeks he has had fever sweats generalized fatigue. He has had diverticulitis in the past but he says that pain has come on gradually. He says today's pain is significantly worse. He has been a little lightheaded as well. He initially appears appears pale and diaphoretic holding his left side. No nausea or vomiting. He feels like he has fever but he does not have fever. He also looks to be in atrial flutter on the monitor. Patient denies any cardiac history. He has no known arrhythmia. He has in a flutter with RVR with a heart rate in the 130s. He denies any chest pain or palpitations. No shortness of breath. Really complaining about left lower quadrant pain. Patient has had some upper respiratory symptoms and hot flashes ongoing for a couple of weeks. No significant cough. They took a home COVID test at some point it was negative. is not having any symptoms. Related Data Previous Rx's Medication Instructions Recorded testosterone (AndroGel) 2 pump topical DAILY #75 grams 11/15/22 gabapentin 300 mg capsule See Rx Instructions .Route 12/23/22 .COMPLEX #180 caps lovastatin 40 mg tablet See Rx Instructions .Route 02/04/23 .COMPLEX #180 tabs atenolol 50 mg tablet See Rx Instructions .Route 02/18/23 .COMPLEX #180 tabs Allergies Allergy/AdvReac Type Severity Reaction Status Date / Time No Known Drug Allergies Allergy Verified 02/18/23 14:45 Review of Systems Review of Systems ROS Unobtainable: All systems reviewed & are unremarkable except as noted in HPI and below Patient History Medical History Acute maxillary sinusitis Sebaceous cyst Low testosterone in male Benign skin lesion of multiple sites Medicare annual wellness visit, subsequent Vitamin D deficiency Fatigue Type 2 diabetes mellitus Well adult on routine health check Surgical History Anesthesia History of appendectomy (~2007) Social History Smoking Status: Never smoker Smoking Status: Never smoker alcohol intake frequency: holidays/special occasions only Substance Use Type: does not use Exam Initial Vital Signs Initial Vital Signs: Vital Signs Temperature 97.4 F L 03/03/23 13:46 Pulse Rate 74 03/03/23 13:46 Respiratory Rate 20 03/03/23 13:46 Blood Pressure 115/84 03/03/23 13:46 Pulse Oximetry 97 03/03/23 13:46 Oxygen Delivery Method Room Air 03/03/23 13:46 GENERAL: Slightly pale diaphoretic 67-year-old male HEENT: Head atraumatic,EOMI, pupils reactive, face symmetric, moist mucous membranes CARDIOVASCULAR: Tachycardic regular no murmur RESPIRATORY: Breath sounds equal bilaterally, no wheezes rales or rhonchi. No conversational dyspnea ABDOMEN: Soft, tender left lower quadrant no guarding no rebound EXTREMITIES: Normal range of motion, no clubbing or edema. Neurovascularly intact NEUROLOGICAL: Alert and oriented x4.Normal gait and speech. Cranial nerves II through XII grossly intact. SKIN: Warm, dry, no laceration, no petechiae, no rashes or lesions. Course Orders Ordered: ED Orders 03/03/23 14:00 Complete Blood Count AUTO DIFF Stat Comprehensive Metabolic Panel Stat Lipase Stat 03/03/23 14:03 EKG-12 Lead Stat 03/03/23 14:13 Chest [XR chest 1V] Stat 03/03/23 14:18 CT abdomen pelvis w con Stat 03/03/23 14:55 BNP [NT-proBNP (BNP-Adult 18+)] Stat Covid-19 + FLU A/B + RSV - PCR Stat D Dimer Stat Lactate (Lactic Acid) Stat MAG [Magnesium] Stat TSH [Thyroid Stimulating Hormone] Stat Troponin & CK Cardiac Panel Stat 03/03/23 15:04 Urine Microscopic Stat 03/03/23 16:03 CT angio chest PE protocol Stat Ondansetron HCl (Ondansetron 4 Mg Odt) 4 mg PO NOW PRN PRN Reason: Nausea And Vomiting Ondansetron HCl (Ondansetron 4 Mg/2 Ml Inj) 4 mg IV NOW PRN PRN Reason: Nausea And Vomiting Last Admin: 03/03/23 14:30 Dose: 4 mg Documented By: BROOKE Discontinued Medications Atenolol (Atenolol 50 Mg Tablet) 50 mg PO NOW ONE Stop: 03/03/23 17:27 Last Admin: 03/03/23 17:32 Dose: 50 mg Documented By: JAE Diltiazem HCl (Diltiazem 5 Mg/Ml Sdv) 10 mg IV NOW ONE Stop: 03/03/23 14:55 Last Admin: 03/03/23 14:59 Dose: 10 mg Documented By: RB Furosemide (Furosemide 40 Mg/4 Ml Vial) 20 mg IV NOW ONE Stop: 03/03/23 17:27 Last Admin: 03/03/23 17:34 Dose: 20 mg Documented By: JAE Hydromorphone HCl (Hydromorphone 0.5 Mg Inj) 0.5 mg IV NOW ONE Stop: 03/03/23 14:14 Last Admin: 03/03/23 14:24 Dose: 0.5 mg Documented By: BROOKE Hydromorphone HCl (Hydromorphone 0.5 Mg Inj) 0.5 mg IV NOW ONE Stop: 03/03/23 15:09 Last Admin: 03/03/23 15:13 Dose: 0.5 mg Documented By: CJ Sodium Chloride (Normal Saline 0.9%) 1,000 mls @ 1,000 mls/hr IV BOLUS ONE Stop: 03/03/23 15:12 Last Infusion: 03/03/23 15:54 Dose: Infused Documented By: Admin: 03/03/23 14:24 Dose: 1,000 mls/hr Documented By: BROOKE Ketorolac Tromethamine (Ketorolac 30 Mg/Ml Vial) 15 mg IV NOW ONE Stop: 03/03/23 15:26 Last Admin: 03/03/23 15:55 Dose: 15 mg Documented By: JAE Vital Signs Vital signs: Vital Signs - 8 hr 03/03/23 13:46 03/03/23 14:00 03/03/23 14:03 Temperature 97.4 F L Pulse Rate 74 67 135 H Respiratory Rate 20 18 Blood Pressure 115/84 Pulse Oximetry 97 98 98 Oxygen Delivery Method Room Air Oxygen Flow Rate 03/03/23 14:03 03/03/23 14:30 03/03/23 14:30 Temperature Pulse Rate 129 H Respiratory Rate 22 Blood Pressure 118/83 132/80 Pulse Oximetry 97 Oxygen Delivery Method Oxygen Flow Rate 03/03/23 14:45 03/03/23 14:57 03/03/23 14:57 Temperature Pulse Rate 130 H Respiratory Rate 21 Blood Pressure 118/85 Pulse Oximetry 98 97 Oxygen Delivery Method Oxygen Flow Rate 03/03/23 14:59 03/03/23 15:00 03/03/23 15:06 Temperature Pulse Rate 130 H 132 H 129 H Respiratory Rate 26 H 25 H Blood Pressure 118/85 Pulse Oximetry 96 93 Oxygen Delivery Method Oxygen Flow Rate 03/03/23 15:06 03/03/23 15:15 03/03/23 15:20 Temperature Pulse Rate 69 75 Respiratory Rate 23 24 Blood Pressure 126/83 Pulse Oximetry 94 93 Oxygen Delivery Method Oxygen Flow Rate 03/03/23 15:20 03/03/23 15:30 03/03/23 15:30 Temperature Pulse Rate 70 Respiratory Rate 25 H Blood Pressure 119/87 136/87 Pulse Oximetry 90 L Oxygen Delivery Method Oxygen Flow Rate 03/03/23 15:40 03/03/23 15:40 03/03/23 15:45 Temperature Pulse Rate 69 72 Respiratory Rate 26 H 28 H Blood Pressure 139/89 Pulse Oximetry 92 91 Oxygen Delivery Method Oxygen Flow Rate 03/03/23 15:50 03/03/23 15:50 03/03/23 16:00 Temperature Pulse Rate 72 102 H Respiratory Rate 27 H 26 H Blood Pressure 132/92 H Pulse Oximetry 90 L 91 Oxygen Delivery Method Oxygen Flow Rate 03/03/23 16:01 03/03/23 16:01 03/03/23 16:10 Temperature Pulse Rate 104 H 122 H Respiratory Rate 29 H 24 Blood Pressure 149/100 H Pulse Oximetry 90 L 87 L Oxygen Delivery Method Oxygen Flow Rate 03/03/23 16:10 03/03/23 16:21 03/03/23 16:30 Temperature Pulse Rate 121 H 116 H Respiratory Rate 31 H 21 Blood Pressure 146/91 H Pulse Oximetry 89 L 92 Oxygen Delivery Method Nasal Cannula Nasal Cannula Oxygen Flow Rate 2 2 03/03/23 16:45 03/03/23 17:00 03/03/23 17:15 Temperature Pulse Rate 119 H 122 H 123 H Respiratory Rate 14 15 21 Blood Pressure Pulse Oximetry 93 96 94 Oxygen Delivery Method Nasal Cannula Nasal Cannula Nasal Cannula Oxygen Flow Rate 2 2 2 03/03/23 17:25 Temperature Pulse Rate Respiratory Rate Blood Pressure Pulse Oximetry 94 Oxygen Delivery Method Room Air Oxygen Flow Rate MDM - Abdominal Pain Lab Data 03/03/23 14:00 03/03/23 14:00 Labs: Lab Results 03/03/23 03/03/23 03/03/23 Range/Units 14:00 14:55 15:04 WBC 8.1 (4.5-11.0) X10^3/uL RBC 5.02 (4.5-5.9) X10^6/uL Hgb 15.2 (13.5-17.5) g/dL Hct 44.3 (41-53) % MCV 88.2 (80-100) fL MCH 30.4 (26-34) PG MCHC 34.4 (30-36) % RDW 13.9 (11.6-14.8) % Plt Count 307 (150-400) X10^3/uL Neut % (Auto) 54.5 (50-75) % Lymph % (Auto) 29.9 (25-40) % [place] % (Auto) 12.3 (3-14) % Eos % (Auto) 2.2 (2-4) % Baso % (Auto) 1.1 (0-2) % Neut # (Auto) 4400 (1581-7614) /uL Lymph # (Auto) 2400 (7348-9946) /uL [place] # (Auto) 1000 H (0-900) /uL Eos # (Auto) 200 (0-450) /uL Baso # (Auto) 100 (0-100) /uL D-Dimer TNP Sodium 139 (137-145) mmol/L Potassium 4.2 (3.4-5.1) mmol/L Chloride 104 (98-107) mmol/L Carbon Dioxide 27 (22-32) mmol/L BUN 23 H (9-20) mg/dL Creatinine 1.27 H (0.66-1.25) mg/dL Estimated GFR > 60 (>60) mL/min BUN/Creatinine Ratio 18.1 (6-22) Glucose 121 H (80-110) mg/dL Lactate 1.1 (0.7-2.1) mmol/L Calcium 9.2 (8.4-10.2) mg/dL Magnesium 2.2 (1.6-2.3) mg/dL Total Bilirubin 0.8 (0.2-1.3) mg/dL AST TNP ALT 45 (<50) IU/L Alkaline Phosphatase 63 (38-126) U/L Total Creatine Kinase 107 (55-170) U/L Troponin I < 0.012 (0.01-0.034) ng/mL NT-Pro-B Natriuret Pep 981 H (<125) pg/mL Total Protein 8.0 (6.3-8.2) g/dL Albumin 4.4 (3.5-5.0) g/dL Globulin 3.6 (1.7-4.1) g/dL Albumin/Globulin Ratio 1.2 (1.0-2.8) Lipase 111 (23-300) U/L TSH 3.44 (0.47-4.68) uIU/mL Urine RBC 10-30/hpf H (0-5/HPF) Urine WBC 0-1/hpf (0-5/HPF) Ur Squamous Epith Cells 0-1 /hpf (0-5/HPF) Urine Bacteria Few (2-10) H (None) Ur Culture Indicated? Cult not indicated SARS-CoV-2 (PCR) Positive H (Negative) Influenza A (RT-PCR) Flu a negative (NEGATIVE) Influenza B (RT-PCR) Flu b negative (NEGATIVE) RSV (PCR) Negative (Negative) Point of care testing: Urine Dip Bedside Urine Glucose Negative Bedside Urine Bilirubin - Negative Bedside Urine Ketone - Negative Urine Specific [place] 1.030 Bedside Urine Occult Blood +++ Bedside Urine pH 5.5 Bedside Urine Protein +/- 15 Bedside Urine Urobilinogen - Negative Bedside Urine Nitrite - Negative Bedside Urine Leukocytes - Negative Esterase Imaging Data Chest x-ray: Radiologist's Impression: PROCEDURE: XR CHEST 1V INDICATIONS: chest pain TECHNIQUE: One view of the chest was acquired. COMPARISON: None. FINDINGS: Surgical changes and devices: None. Lungs and pleura: Lungs are clear. No pleural effusions or pneumothorax. Mediastinum: Mediastinal contours appear normal. Heart size is normal. Bones and chest wall: No suspicious bony lesions. Overlying soft tissues appear unremarkable. IMPRESSION: No acute cardiopulmonary abnormality is seen. Dictated by: Eva Winchester M.D. on 03/03/2023 at 15:11 CT scan - abdomen/pelvis: Radiologist's Impression: PROCEDURE: CT ABDOMEN PELVIS W CON INDICATIONS: severe left lower quad pain hx diverticulitis, new afib TECHNIQUE: After the administration of intravenous contrast, axial sections acquired from the lung bases to the pubic symphysis. Coronal and sagittal reformats were performed. For radiation dose reduction, the following was used: automated exposure control, adjustment of mA and/or kV according to patient size. COMPARISON: [facility], CT, CT ABDOMEN PELVIS W CON, 06/01/2022, 8:40. FINDINGS: Image quality: Diagnostic. Of note, this is an arterial phase study. Lower Chest: No significant findings. ABDOMEN: Liver: No solid mass. Gallbladder: Unremarkable. Biliary ducts: No biliary dilation. Pancreas: No ductal dilation. Spleen: Size is within normal limits. Adrenal Glands: No adrenal nodules. Kidneys and Ureters: The right kidney demonstrates normal size and enhancement. No right hydronephrosis, perinephric fat stranding or nephrolithiasis. There is a slightly delayed left nephrogram. There is mild left hydronephrosis and mild left perinephric fat stranding. The left ureter is mildly dilated throughout its course. A 3 mm calculus is present within the inferior left ureter (series 2/image 78). Stomach and Bowel: Normal colonic caliber, without significant wall thickening. The appendix is not visualized; however surgical clips are present in the region of the cecum in the lower quadrant suggesting prior appendectomy. Peritoneum: No abnormal intraperitoneal fluid. No free air. Ventral Wall: No hernia. Abdominal Nodes: No retroperitoneal or mesenteric adenopathy by size criteria. Vessels: Aorta and inferior vena cava are normal in size. PELVIS: Pelvic Organs: Unremarkable. Bladder: Unremarkable. Pelvic Nodes: No enlarged lymph nodes. Miscellaneous: No inguinal hernias are seen. Bones: No aggressive osseous abnormality. IMPRESSION: 1. Left ureterolithiasis with mild left hydronephrosis and slightly delayed left nephrogram. 2. No other acute intra-abdominal findings. Probable prior appendectomy. Dictated by: Eva Winchester M.D. on 03/03/2023 at 15:14 CT scan - chest: Radiologist's Impression: PROCEDURE: CT ANGIO CHEST PE PROTOCOL INDICATIONS: recent covid new aflutter hypoxia r.o pe TECHNIQUE: After the administration of intravenous contrast, 2 mm thick sections acquired from the pulmonary apices to the posterior costophrenic angles. 3-dimensional maximum intensity projection (MIP) coronal and sagittal reformats were then acquired through the thorax. For radiation dose reduction, the following was used: automated exposure control, adjustment of mA and/or kV according to patient size. COMPARISON: [facility], CT, CT ABDOMEN PELVIS W CON, 03/03/2023, 14:34. FINDINGS: Image quality: Diagnostic. Pulmonary arteries: Pulmonary arteries are normal in size, and demonstrate no intraluminal filling defects to suggest central pulmonary embolism. Lower Neck: No enlarged lymph nodes. Thyroid: No thyroid nodules which require sonographic follow up, per consensus guidelines. Axillae: No enlarged lymph nodes. Chest Wall: Unremarkable. Bones: Unremarkable. Lungs and Pleura: Diffuse interstitial pulmonary edema is present. There is minimal fluid present in the major fissures bilaterally. No focal airspace consolidation or alveolar pulmonary edema noted. Heart: Mild cardiomegaly. No pericardial effusion. Thoracic Vessels: No aortic aneurysm. Mediastinum and Jenn: There is shotty bilateral fairly symmetrical hilar adenopathy and subcarinal adenopathy and right paratracheal adenopathy and pre-vascular adenopathy. This is nonspecific. No individual abnormally sized lymph nodes are identified. Findings may potentially represent reactive adenopathy. This pattern is also seen in sarcoidosis. Esophagus: No wall thickening. No hiatal hernia. Upper Abdomen: Visualized upper abdomen solid organs and bowel loops appear normal. IMPRESSION: 1. No acute pulmonary emboli. 2. Congestive heart failure exacerbation. Interstitial pulmonary edema. 3. Nonspecific mediastinal shotty adenopathy in a relatively symmetric distribution. Findings may potentially simply be reactive lymph nodes. Also possible is symmetric adenopathy related to sarcoidosis. Suggest clinical correlation. Dictated by: Nasim Card M.D. on 03/03/2023 at 16:56 ECG Data Interpretation: Atrial flutter rate [address] changes MDM Narrative Medical decision making narrative: Patient 67-year-old male history of hypertension presenting today with sudden onset left lower quadrant pain. He does look a little pale diaphoretic. He is also noted to be in atrial flutter with RVR which he does not have history of. He is completely asymptomatic denies chest pain or palpitations really gripping that left lower quadrant. Blood work has been reviewed no leukocytosis no anemia, electrolytes stable creatinine slightly up 1.27 previously 0.8 in October of 2022 negative troponin BNP mildly TSH slightly elevated 3.4 D-dimer test unable to be performed due to lipemia. Imaging reviewed he is found to have a 3 mm kidney stone on the left side likely causing left flank pain, chest x-ray negative, CT angio chest does show congestive heart failure with no pulmonary embolism Patient is completely asymptomatic for his atrial flutter with RVR which is likely new. He does have some congestive heart failure based on CT. His oxygen did drop into the 80s for awhile with a good waveform. He has not having significant dyspnea or shortness of breath he has given a dose of Lasix in the ED. I do not believe hypoxia secondary to COVID I think more likely secondary to CHF. It sounds like he was sick with COVID like symptoms felt better today went to work and then had sudden onset left flank pain. Atrial flutter responded well to Cardizem and then heart rate slowly creeping up. His kidney stone pain much better controlled with Toradol or other than Dilaudid. He overall looks better than when he 1st came in. No concern for mesenteric ischemia although it was considered. CT was negative and he has a normal lactate. Dr. Tanner updated patient's symptoms test results accepts patient request Cardizem drip Discharge Plan Departure Patient Disposition: Admitted As Inpatient Clinical Impression: Atrial flutter with rapid ventricular response, CHF (congestive heart failure), COVID-19, Kidney stone on left side Admit Date/Time: 03/03/23 17:50 Admit Provider: Pradeep Tanner
[2023-03-03] MEDS: dilTIAZem 5 MG/ML SDV 10 MG IV (14:59)
[2023-03-03 15:19] LABS: Creatine Kinase 107 U/L (55-170); Lactate (Lactic Acid) 1.1 mmol/L (0.7-2.1); Magnesium 2.2 mg/dL (1.6-2.3)
[2023-03-03 15:29] LABS: Bacteria Urine Few (2-10); Culture Indicated Urine Cult Not Indicated; RBC Urine 10-30/HPF (0-5/HPF); Squamous Epithelial Cell Urine 0-1 /HPF (0-5/HPF); WBC Urine 0-1/HPF (0-5/HPF)
[2023-03-03 15:30] LABS: NT-proBNP (BNP-Adult 18+) 981 pg/mL (<125)
[2023-03-03 15:32] LABS: Troponin I < 0.012 ng/mL (0.01-0.034)
[2023-03-03 15:50] LABS: Influenza A - CEPHEID Flu A NEGATIVE (NEGATIVE); Influenza B - CEPHEID Flu B NEGATIVE (NEGATIVE); Respiratory Syncytial Virus Negative (Negative)
[2023-03-03 15:51] LABS: Thyroid Stimulating Hormone 3.44 uIU/mL (0.47-4.68)
[2023-03-03] MEDS: KETOROLAC 30 MG/ML VIAL 15 MG IV (15:55)
[2023-03-03 15:59] LABS: COVID-19 CEPHEID 4-PLEX PCR POSITIVE (Negative)
--- NOTE | 2023-03-03 16:03 | DI.CT.S_ITS ---
PROCEDURE: CT ANGIO CHEST PE PROTOCOL INDICATIONS: recent covid new aflutter hypoxia r.o pe TECHNIQUE: After the administration of intravenous contrast, 2 mm thick sections acquired from the pulmonary apices to the posterior costophrenic angles. 3-dimensional maximum intensity projection (MIP) coronal and sagittal reformats were then acquired through the thorax. For radiation dose reduction, the following was used: automated exposure control, adjustment of mA and/or kV according to patient size. COMPARISON: [facility], CT, CT ABDOMEN PELVIS W CON, 03/03/2023, 14:34. FINDINGS: Image quality: Diagnostic. Pulmonary arteries: Pulmonary arteries are normal in size, and demonstrate no intraluminal filling defects to suggest central pulmonary embolism. Lower Neck: No enlarged lymph nodes. Thyroid: No thyroid nodules which require sonographic follow up, per consensus guidelines. Axillae: No enlarged lymph nodes. Chest Wall: Unremarkable. Bones: Unremarkable. Lungs and Pleura: Diffuse interstitial pulmonary edema is present. There is minimal fluid present in the major fissures bilaterally. No focal airspace consolidation or alveolar pulmonary edema noted. Heart: Mild cardiomegaly. No pericardial effusion. Thoracic Vessels: No aortic aneurysm. Mediastinum and Jenn: There is shotty bilateral fairly symmetrical hilar adenopathy and subcarinal adenopathy and right paratracheal adenopathy and pre-vascular adenopathy. This is nonspecific. No individual abnormally sized lymph nodes are identified. Findings may potentially represent reactive adenopathy. This pattern is also seen in sarcoidosis. Esophagus: No wall thickening. No hiatal hernia. Upper Abdomen: Visualized upper abdomen solid organs and bowel loops appear normal. IMPRESSION: 1. No acute pulmonary emboli. 2. Congestive heart failure exacerbation. Interstitial pulmonary edema. 3. Nonspecific mediastinal shotty adenopathy in a relatively symmetric distribution. Findings may potentially simply be reactive lymph nodes. Also possible is symmetric adenopathy related to sarcoidosis. Suggest clinical correlation. Dictated by: Nasim Card M.D. on 03/03/2023 at 16:56 Approved by: Nasim Card M.D. on 03/03/2023 at 17:02
[2023-03-03] MEDS: atenoloL 50 MG TABLET PO (17:32)
[2023-03-03] MEDS: FUROSEMIDE 40 MG/4 ML VIAL 20 MG IV (17:34)
[2023-03-03] MEDS: DILTIAZEM 125 MG/125 ML PIGGYBACK IV (18:07)
--- NOTE | 2023-03-03 18:12 | PM.HP.1 ---
History of Present Illness History of Present Illness Date Patient Seen: 03/03/23 Time Patient Seen: 18:12 Chief complaint: ABD Pain/Hx Diverticulitis Narrative: The patient is a 67-year-old male with a history of diverticulitis and diabetes mellitus 2 presented today with left lower quadrant abdominal pain. The patient has not been feeling well for 1-2 weeks with intermittent fevers and fatigue. He notes a history of diverticulitis. His pain has been progressively worsening over the last several days. Today the pain became bad enough that he elected to come in. The patient was found with CT imaging to have evidence of a 3 mm kidney stone on the left side. In addition the patient was found to be COVID positive but has been having symptoms since about February 22. He denies significant coughing and is requiring 1-2 L of oxygen. Most notably, he was found to be in atrial flutter with a heart rate in the 130s to 150s. The patient was started on diltiazem and given 1 dose of atenolol in the emergency department. The diltiazem was given as a bolus and drip. The patient underwent a CT pulmonary angiogram negative for PE but positive for pulmonary edema which is likely related to his tachycardia. He is given 1 dose of Lasix. He has a history of previous appendectomy. He has been ill for several weeks. He has had intermittent fevers, chills, and fatigue. Some chest heaviness, no cough. His LLQ pain was essentially acute in onset today and felt like his diverticulitis. FOR[facility]LY [facility], LATER [facility] Medical History Acute maxillary sinusitis Sebaceous cyst Low testosterone in male Benign skin lesion of multiple sites Medicare annual wellness visit, subsequent Vitamin D deficiency Fatigue Type 2 diabetes mellitus Well adult on routine health check Surgical History Anesthesia History of appendectomy (~2007) Social History Smoking Status: Never smoker Meds Home Medications and Allergies Home Medications Medication Instructions Recorded Confirmed Type testosterone (AndroGel) 2 pump topical DAILY #75 grams 11/15/22 02/18/23 Rx gabapentin 300 mg capsule See Rx Instructions .Route 12/23/22 02/18/23 Rx .COMPLEX #180 caps lovastatin 40 mg tablet See Rx Instructions .Route 02/04/23 02/18/23 Rx .COMPLEX #180 tabs atenolol 50 mg tablet See Rx Instructions .Route 02/18/23 02/18/23 Rx .COMPLEX #180 tabs Allergies Allergy/AdvReac Type Severity Reaction Status Date / Time No Known Drug Allergies Allergy Verified 02/18/23 14:45 Review of Systems Review of Systems Narrative: All else reviewed and otherwise negative. Exam Vital Signs (past 8 hours): - 03/03/23 13:46 03/03/23 14:00 03/03/23 14:03 Temperature 97.4 F L Pulse Rate 74 67 135 H Respiratory Rate 20 18 Blood Pressure 115/84 Pulse Oximetry 97 98 98 Oxygen Delivery Method Room Air Oxygen Flow Rate 03/03/23 14:03 03/03/23 14:30 03/03/23 14:30 Temperature Pulse Rate 129 H Respiratory Rate 22 Blood Pressure 118/83 132/80 Pulse Oximetry 97 Oxygen Delivery Method Oxygen Flow Rate 03/03/23 14:45 03/03/23 14:57 03/03/23 14:57 Temperature Pulse Rate 130 H Respiratory Rate 21 Blood Pressure 118/85 Pulse Oximetry 98 97 Oxygen Delivery Method Oxygen Flow Rate 03/03/23 14:59 03/03/23 15:00 03/03/23 15:06 Temperature Pulse Rate 130 H 132 H 129 H Respiratory Rate 26 H 25 H Blood Pressure 118/85 Pulse Oximetry 96 93 Oxygen Delivery Method Oxygen Flow Rate 03/03/23 15:06 03/03/23 15:15 03/03/23 15:20 Temperature Pulse Rate 69 75 Respiratory Rate 23 24 Blood Pressure 126/83 Pulse Oximetry 94 93 Oxygen Delivery Method Oxygen Flow Rate 03/03/23 15:20 03/03/23 15:30 03/03/23 15:30 Temperature Pulse Rate 70 Respiratory Rate 25 H Blood Pressure 119/87 136/87 Pulse Oximetry 90 L Oxygen Delivery Method Oxygen Flow Rate 03/03/23 15:40 03/03/23 15:40 03/03/23 15:45 Temperature Pulse Rate 69 72 Respiratory Rate 26 H 28 H Blood Pressure 139/89 Pulse Oximetry 92 91 Oxygen Delivery Method Oxygen Flow Rate 03/03/23 15:50 03/03/23 15:50 01/02/24 16:00 Temperature Pulse Rate 72 102 H Respiratory Rate 27 H 26 H Blood Pressure 132/92 H Pulse Oximetry 90 L 91 Oxygen Delivery Method Oxygen Flow Rate 03/03/23 16:01 03/03/23 16:01 03/03/23 16:10 Temperature Pulse Rate 104 H 122 H Respiratory Rate 29 H 24 Blood Pressure 149/100 H Pulse Oximetry 90 L 87 L Oxygen Delivery Method Oxygen Flow Rate 03/03/23 16:10 03/03/23 16:21 03/03/23 16:30 Temperature Pulse Rate 121 H 116 H Respiratory Rate 31 H 21 Blood Pressure 146/91 H Pulse Oximetry 89 L 92 Oxygen Delivery Method Nasal Cannula Nasal Cannula Oxygen Flow Rate 2 2 03/03/23 16:45 03/03/23 17:00 03/03/23 17:15 Temperature Pulse Rate 119 H 122 H 123 H Respiratory Rate 14 15 21 Blood Pressure Pulse Oximetry 93 96 94 Oxygen Delivery Method Nasal Cannula Nasal Cannula Nasal Cannula Oxygen Flow Rate 2 2 2 03/03/23 17:25 03/03/23 17:30 03/03/23 17:42 Temperature Pulse Rate 124 H 127 H Respiratory Rate 24 27 H Blood Pressure Pulse Oximetry 94 92 96 Oxygen Delivery Method Room Air Oxygen Flow Rate 03/03/23 17:42 03/03/23 17:45 03/03/23 17:50 Temperature Pulse Rate 125 H 154 H Respiratory Rate 24 27 H Blood Pressure 131/88 Pulse Oximetry 94 92 Oxygen Delivery Method Oxygen Flow Rate 03/03/23 17:50 03/03/23 18:00 03/03/23 18:00 Temperature Pulse Rate 125 H Respiratory Rate Blood Pressure 134/97 H 139/92 H Pulse Oximetry 96 Oxygen Delivery Method Oxygen Flow Rate Oxygen Delivery Method Room Air Oxygen Flow Rate 2 Narrative Exam Narrative: NAD, fluent speech. The patient is oriented. Normocephalic skull, symmetric pupils, EOMI. Normal nose, oropharynx unremarkable normal mucosa. Neck is supple, midline trachea. No adenopathy. Lungs are clear, normal effort and rate. He is on supplemental oxygen, 2 L. Heart is regular and tachycardic without murmur. Abdomen is soft, nondistended. Extremities are free of edema. He has normal joints and no deformities. The skin is free of rash or lesions. He has normal judgment. Objective ECG Impression: Atrial flutter with tachycardia (rate 112) Imaging Chest x-ray: Radiologist's impression: No abnormality. CT scan - chest: Radiologist's impression: 1. No acute pulmonary emboli. 2. Congestive heart failure exacerbation. Interstitial pulmonary edema. 3. Nonspecific mediastinal shotty adenopathy in a relatively symmetric distribution. Findings may potentially simply be reactive lymph nodes. Also possible is symmetric adenopathy related to sarcoidosis. Suggest clinical correlation CT scan - abdomen: Radiologist's impression: 1. Left ureterolithiasis with mild left hydronephrosis and slightly delayed left nephrogram. 2. No other acute intra-abdominal findings. Probable prior appendectomy. Labs 03/03/23 14:00 03/03/23 14:00 Labs: Laboratory Results - last 24 hr 03/03/23 03/03/23 03/03/23 14:00 14:55 15:04 WBC 8.1 RBC 5.02 Hgb 15.2 Hct 44.3 MCV 88.2 MCH 30.4 MCHC 34.4 RDW 13.9 Plt Count 307 Neut % (Auto) 54.5 Lymph % (Auto) 29.9 [place] % (Auto) 12.3 Eos % (Auto) 2.2 Baso % (Auto) 1.1 Neut # (Auto) 4400 Lymph # (Auto) 2400 [place] # (Auto) 1000 H Eos # (Auto) 200 Baso # (Auto) 100 D-Dimer TNP Sodium 139 Potassium 4.2 Chloride 104 Carbon Dioxide 27 BUN 23 H Creatinine 1.27 H Estimated GFR > 60 BUN/Creatinine Ratio 18.1 Glucose 121 H Lactate 1.1 Calcium 9.2 Magnesium 2.2 Total Bilirubin 0.8 AST TNP ALT 45 Alkaline Phosphatase 63 Total Creatine Kinase 107 Troponin I < 0.012 NT-Pro-B Natriuret Pep 981 H Total Protein 8.0 Albumin 4.4 Globulin 3.6 Albumin/Globulin Ratio 1.2 Lipase 111 TSH 3.44 Urine RBC 10-30/hpf H Urine WBC 0-1/hpf Ur Squamous Epith Cells 0-1 /hpf Urine Bacteria Few (2-10) H Ur Culture Indicated? Cult not indicated SARS-CoV-2 (PCR) Positive H Influenza A (RT-PCR) Flu a negati ve Influenza B (RT-PCR) Flu b negative RSV (PCR) Negative Assessment & Plan Assessment & Plan narrative: 1. Atrial flutter with rapid response, present on admission and improving. 2. Acute hypoxic respiratory failure with evidence of pulmonary edema, present on admission and active. 3. COVID-19 with symptoms beginning February 22, present on admission and active. 4. Nephrolithiasis with nonobstructing 3 mm kidney stone and abdominal pain, present on admission and active. 5. Remote diverticulitis, not clearly present on admission are active. 6. DM 2, present on admission and active. 7. Testosterone deficiency, present on admission and stable. 8. Hyperlipidemia, present on admission and stable. Plan: -rate control with diltiazem drip, we will obtain a 2D echo to assess LV function. Anticipate conversion to oral medications and oral anticoagulation over the next 12-24 hours. We will also discuss with Cardiology. There is a small chance the patient would require urgent cardioversion which case we would transfer to [facility]. -Lasix 20 IV given in the ED, we will repeat tomorrow morning. -wean oxygen as able. -subcutaneous insulin for glucose control. -analgesia for nephrolithiasis pain. -COVID isolation, no steroids will be given as he appears to have pulmonary edema being a more likely cause of hypoxia then COVID. He is full resuscitation. is proxy decision maker. Lovenox for DVT prophylaxis. Quality MIPS - Admit I confirm the patient?s Advance Care Plan is present, Code status is documented, Surrogate decision maker is in patient?s record [If Yes, STOP here]: Yes
[2023-03-03] MEDS: SODIUM CHLORIDE 0.9% 1,000 ML 100 ML IV (18:40)
[2023-03-03 20:03] LABS: MRSA (Nasal) PCR Not Detected (Not Detect)
--- NOTE | 2023-03-03 20:55 | PC.NURSE ---
2009--pt's o2 sat 87%; placed on o2/2l/nc; explained need for o2 to pt and he verbalized understanding
[2023-03-04] VITALS (56 sets, daily range): BP systolic 99–121; BP diastolic 59–80; PULSE 47–86; RESP 16–32; TEMP 36.4; O2SAT 89–97
[2023-03-04] MEDS: SODIUM CHLORIDE 0.9% 1,000 ML 100 ML IV (04:46)
[2023-03-04 04:50] LABS: Hematocrit 41.9 % (41-53); Hemoglobin 14.2 g/dL (13.5-17.5); Mean Corpuscular HGB Conc 33.9 % (30-36); Mean Corpuscular Hemoglobin 29.8 PG (26-34); Platelet Count 267 X10^3/uL (150-400); Red Blood Cell Count 4.76 X10^6/uL (4.5-5.9); Red Cell Distribution Width 14.4 % (11.6-14.8); White Blood Cell Count 10.3 X10^3/uL (4.5-11.0)
[2023-03-04 05:29] LABS: Blood Urea Nitrogen 23 mg/dL (9-20); Carbon Dioxide 22 mmol/L (22-32); Chloride 104 mmol/L (98-107); Potassium 3.6 mmol/L (3.4-5.1); Sodium 134 mmol/L (137-145); Troponin I < 0.012 ng/mL (0.01-0.034)
[2023-03-04 05:30] LABS: Alanine Aminotransferase 36 IU/L (<50); Albumin 3.8 g/dL (3.5-5.0); Albumin Globulin Ratio 1.3 (1.0-2.8); Alkaline Phosphatase 61 U/L (38-126); BUN Creatinine Ratio 26.7 (6-22); Bilirubin Total 0.6 mg/dL (0.2-1.3); Estimated Glomerular Filt Rate > 60 mL/min (>60); Glucose 145 mg/dL (80-110); Total Protein 6.8 g/dL (6.3-8.2)
[2023-03-04 05:40] LABS: Hemoglobin A1C% w Est Avg Glu 6.7 % (4.0-6.0)
--- NOTE | 2023-03-04 07:21 | PC.NURSE ---
0706--pt called and reported right arm feeling numb; b/p cuff was inflated; deflated cuff and noticed right arm IV infiltrated; iv discontinued w/ cath intact; Right arm numbness resolved when cuff deflated; arm elevated on pillow and warm pack applied; pt reported arm already starting to feel better
[2023-03-04 08:15] LABS: HEMOLYSIS < 15 (0-50)
[2023-03-04] MEDS: ENOXAPARIN 40 MG/0.4 ML SYRINGE SUBCUT (08:38)
[2023-03-04] MEDS: FUROSEMIDE 40 MG/4 ML VIAL IV (08:38)
--- NOTE | 2023-03-04 09:26 | DI.ECHO.S_ITS ---
[place] [facility]---------+ [facility] +---------+ : : [address] : : : : [id number] : : : : Phone: [phone]+ Echocardiogram Report + + :Name: PETER MINER Study Date: 03/04/2023 Height: 69 in : :[facility] ReadingLocation: Weight: 189 lb : : Gender: Male BSA: 2.0 m2 : :: 1955 Age: 67 yrs BP: 115/71 mmHg: :Reason For Study: ATRIAL FLUTTER : :Ordering Physician: RICK, : :AUDREY Moseley Performed By: Nunu Reynoso : :Referring: AUDREY CABRERA : + + Interpretation Summary 1) Normal left ventricular thickness, size, wall motion, and systolic function (EF 55-60%). 2) Normal right ventricular size with low normal function. 3) There is mild to moderate mitral regurgitation. 4) No prior Echo available for comparison. Procedure: A two-dimensional transthoracic echocardiogram with color flow and Doppler was performed. The study quality was technically adequate. There is no prior echocardiogram noted for this patient. The heart rate ranged between 71-87 bpm during the study. Left Ventricle: The left ventricle is normal in size and wall thickness. The ejection fraction is estimated to be 55-60%. Left ventricular systolic function appears normal without focal wall motion abnormalities. Right Ventricle: The right ventricle is normal size. Right ventricular systolic function is at the lower limits of normal. Atria: The left atrial size is normal. Right atrial size is normal. There is no Doppler evidence for an interatrial shunt. Mitral Valve: The mitral valve leaflets appear mildly thickened, but open well. There is mild to moderate mitral regurgitation. There are multiple regurgitant jets present. Aortic Valve: The aortic valve is trileaflet. The aortic valve opens well. There is no aortic valve stenosis. No aortic regurgitation is present. Tricuspid Valve: The tricuspid valve is normal in structure and function. There is mild tricuspid regurgitation. The right ventricular systolic pressure is estimated to be at least 33 mmHg based on an estimated right atrial pressure of 3 mm Hg. Pulmonic Valve: The pulmonic valve leaflets are thin and pliable; valve motion is normal. There is mild pulmonic regurgitation. Great Vessels: The aortic root is normal size. The dimensions of the ascending aorta are normal. The IVC is of normal diameter and collapses greater than 50% with a sniff. This suggests a low right atrial pressure of 3 mm Hg. Pericardium/ Pleura There is no pericardial effusion. There is no pleural effusion. MMode/2D Measurements & Calculations LVIDd: 4.7 cm LVOT diam: 2.1 cm LVIDs: 2.9 cm Ao root diam: 3.3 cm FS: 37.3 % asc Aorta Diam: 3.4 cm EPSS: 0.57 cm Ao Arch Diam (Prox Trans): 3.4 cm IVSd: 1.1 cm LVPWd: 0.94 cm LV [place]. diameter/BSA (cm/m^2): 2.3 LV sys. diameter/BSA (cm/m^2): 1.5 LA A2 area: 20.3 cm2 RA long axis: 5.3 cm LA A4 area: 20.0 cm2 RA area: 18.3 cm2 LA length (vol): 5.7 cm RA vol: 53.7 ml LA vol: 60.5 ml RA : 26.6 ml/m2 LA vol index: 30.0 ml/m2 IVC diam: 1.2 cm RVD1 (basal): 3.8 cm RVD2 (mid): 2.7 cm TAPSE: 1.7 cm Doppler Measurements & Calculations Ao V2 max: 116.9 cm/sec LVOT Max West: 73.6 cm/sec Ao V2 mean: 84.4 cm/sec LV V1 max P.2 mmHg Ao max P.5 mmHg LV V1 VTI: 13.4 cm Ao mean P.1 mmHg RUFUS(I,D): 2.2 cm2 Ao V2 VTI: 20.1 cm RUFUS(V,D): 2.1 cm2 sev ratio: 0.67 RUFUS indexed to BSA (cm^2/m^2): 1.1 MV E max west: 98.7 cm/sec TR max west: 271.7 cm/sec MV A max west: 17.5 cm/sec TR max P.5 mmHg MV E/A: 5.7 PA V2 max: 104.0 cm/sec Med Peak E' West: 11.0 cm/sec PA V2 mean: 67.6 cm/sec E/E' med: 9.0 PA mean P.1 mmHg Lat Peak E' West: 13.0 cm/sec PA pr(Accel): 36.2 mmHg E/E' lat: 7.6 E/e' average: 8.3 MV dec time: 0.22 sec MR ERO: 0.15 cm2 MR PISA: 1.6 cm2 SV(LVOT): 44.4 ml MR flow rate: 67.1 cm3/sec MR PISA radius: 0.51 cm Reading Physician:04:33 PM
[2023-03-04] MEDS: DILTIAZEM 125 MG/125 ML PIGGYBACK IV (10:15)
--- NOTE | 2023-03-04 10:38 | P.PN_ITS ---
Subjective Subjective Interval history: Doing better today. Denies any recurrence of his left lower quadrant pain since being treated in the emergency department for nephrolithiasis with Toradol. He he does not and did not feel palpitations. His heart rate is under better control with a diltiazem drip overnight. He is in atrial flutter with a rate in the 70 range. He denies any chest pain, or nausea. No recent diarrhea. He has no history of atrial flutter. Exam Vital Signs (past 8 hours): - 03/04/23 03:00 03/04/23 03:00 03/04/23 03:00 Temperature 97.6 F Pulse Rate 48 L Respiratory Rate 26 H Blood Pressure 99/63 Pulse Oximetry 97 Oxygen Delivery Method 03/04/23 03:15 03/04/23 03:30 03/04/23 03:30 Temperature Pulse Rate 48 L 50 L Respiratory Rate 22 22 Blood Pressure 104/64 Pulse Oximetry 92 94 Oxygen Delivery Method 03/04/23 03:45 03/04/23 04:00 03/04/23 04:00 Temperature Pulse Rate 48 L 54 L Respiratory Rate 24 23 Blood Pressure 115/65 Pulse Oximetry 94 95 Oxygen Delivery Method 03/04/23 04:15 03/04/23 04:30 03/04/23 04:30 Temperature Pulse Rate 47 L 48 L Respiratory Rate 24 24 Blood Pressure 107/63 Pulse Oximetry 93 94 Oxygen Delivery Method 03/04/23 05:00 03/04/23 05:00 03/04/23 06:00 Temperature Pulse Rate 48 L 47 L Respiratory Rate 28 H 23 Blood Pressure 105/63 Pulse Oximetry 92 92 Oxygen Delivery Method 03/04/23 06:00 03/04/23 06:15 03/04/23 06:30 Temperature Pulse Rate 47 L 47 L Respiratory Rate 22 24 Blood Pressure 103/59 L Pulse Oximetry 89 L 94 Oxygen Delivery Method 03/04/23 06:30 03/04/23 06:45 03/04/23 07:00 Temperature Pulse Rate 47 L Respiratory Rate 25 H Blood Pressure 109/63 Pulse Oximetry 94 Oxygen Delivery Method Room Air 03/04/23 07:00 03/04/23 07:15 03/04/23 07:30 Temperature Pulse Rate 47 L 52 L 47 L Respiratory Rate 21 23 22 Blood Pressure Pulse Oximetry 96 93 92 Oxygen Delivery Method 03/04/23 07:45 03/04/23 07:48 03/04/23 07:48 Temperature Pulse Rate 48 L 51 L Respiratory Rate 26 H 28 H Blood Pressure 119/69 Pulse Oximetry 97 94 Oxygen Delivery Method 03/04/23 08:00 03/04/23 08:15 03/04/23 08:30 Temperature Pulse Rate 70 68 72 Respiratory Rate 16 25 H 32 H Blood Pressure Pulse Oximetry 93 90 L 90 L Oxygen Delivery Method 03/04/23 08:45 03/04/23 09:00 03/04/23 09:15 Temperature Pulse Rate 71 72 78 Respiratory Rate 28 H 28 H 23 Blood Pressure Pulse Oximetry 89 L 92 94 Oxygen Delivery Method 03/04/23 09:30 03/04/23 09:45 03/04/23 10:00 Temperature Pulse Rate 72 73 76 Respiratory Rate 19 29 H 19 Blood Pressure 117/64 Pulse Oximetry 95 91 94 Oxygen Delivery Method Oxygen Delivery Method Room Air Oxygen Flow Rate 2 Narrative Exam Narrative: NAD, fluent speech. Flat affect. Neck is supple, midline trachea. Lungs are clear, normal effort. Heart is regular. No murmur. Abdomen is nondistended. No leg edema or skin rash. Objective Labs 03/04/23 04:04 03/04/23 04:04 Labs: Laboratory Results - last 24 hr 03/03/23 03/03/23 03/03/23 14:00 14:55 15:04 WBC 8.1 RBC 5.02 Hgb 15.2 Hct 44.3 MCV 88.2 MCH 30.4 MCHC 34.4 RDW 13.9 Plt Count 307 Neut % (Auto) 54.5 Lymph % (Auto) 29.9 [place] % (Auto) 12.3 Eos % (Auto) 2.2 Baso % (Auto) 1.1 Neut # (Auto) 4400 Lymph # (Auto) 2400 [place] # (Auto) 1000 H Eos # (Auto) 200 Baso # (Auto) 100 D-Dimer TNP Sodium 139 Potassium 4.2 Chloride 104 Carbon Dioxide 27 BUN 23 H Creatinine 1.27 H Estimated GFR > 60 BUN/Creatinine Ratio 18.1 Glucose 121 H Hemoglobin A1c Lactate 1.1 Calcium 9.2 Magnesium 2.2 Total Bilirubin 0.8 AST TNP ALT 45 Alkaline Phosphatase 63 Total Creatine Kinase 107 Troponin I < 0.012 NT-Pro-B Natriuret Pep 981 H Total Protein 8.0 Albumin 4.4 Globulin 3.6 Albumin/Globulin Ratio 1.2 Lipase 111 TSH 3.44 Urine RBC 10-30/hpf H Urine WBC 0-1/hpf Ur Squamous Epith Cells 0-1 /hpf Urine Bacteria Few (2-10) H Ur Culture Indicated? Cult not indicated Nasal Screen MRSA (PCR) SARS-CoV-2 (PCR) Positive H Influenza A (RT-PCR) Flu a negative Influenza B (RT-PCR) Flu b negative RSV (PCR) Negative 03/03/23 03/04/23 18:25 04:04 WBC 10.3 RBC 4.76 Hgb 14.2 Hct 41.9 MCV 88.0 MCH 29.8 MCHC 33.9 RDW 14.4 Plt Count 267 Neut % (Auto) Lymph % (Auto) [place] % (Auto) Eos % (Auto) Baso % (Auto) Neut # (Auto) Lymph # (Auto) [place] # (Auto) Eos # (Auto) Baso # (Auto) D-Dimer Sodium 134 L Potassium 3.6 Chloride 104 Carbon Dioxide 22 BUN 23 H Creatinine 0.86 Estimated GFR > 60 BUN/Creatinine Ratio 26.7 H Glucose 145 H Hemoglobin A1c 6.7 H Lactate Calcium 9.0 Magnesium Total Bilirubin 0.6 AST TNP ALT 36 Alkaline Phosphatase 61 Total Creatine Kinase Troponin I < 0.012 NT-Pro-B Natriuret Pep Total Protein 6.8 Albumin 3.8 Globulin 3.0 Albumin/Globulin Ratio 1.3 Lipase TSH Urine RBC Urine WBC Ur Squamous Epith Cells Urine Bacteria Ur Culture Indicated? Nasal Screen MRSA (PCR) Not detected SARS-CoV-2 (PCR) Influenza A (RT-PCR) Influenza B (RT-PCR) RSV (PCR) [facility] Medical History Acute maxillary sinusitis Sebaceous cyst Low testosterone in male Benign skin lesion of multiple sites Medicare annual wellness visit, subsequent Vitamin D deficiency Fatigue Type 2 diabetes mellitus Well adult on routine health check Surgical History Anesthesia History of appendectomy (~2007) Social History household members: spouse Smoking Status: Never smoker Assessment & Plan Assessment & Plan narrative: 1. Atrial flutter with rapid response, present on admission and improving. Rate is around 70. 2. Acute hypoxic respiratory failure with evidence of pulmonary edema, present on admission and active. No dyspnea or hypoxia. 3. COVID-19 with symptoms beginning February 22, present on admission and active. No dyspnea or hypoxia. 4. Nephrolithiasis with nonobstructing 3 mm kidney stone and abdominal pain, present on admission and improved. No further abdominal pain. 5. Remote diverticulitis, not clearly present on admission are active. No abdominal pain. 6. DM 2, present on admission and active. Blood sugars are stable, his A1c is 6.4. 7. Testosterone deficiency, present on admission and stable. 8. Hyperlipidemia, present on admission and stable. Plan: -Will obtain a 2D echo to assess LV function. Anticipate conversion to oral medications and oral anticoagulation over the next 6 hours. We will also discuss with Cardiology after echo results. -Lasix 20 IV given in the ED, and this morning. -subcutaneous insulin for glucose control. -COVID isolation, no steroids will be given as he appears to have pulmonary edema being a more likely cause of hypoxia then COVID. He is full resuscitation. is proxy decision maker. Lovenox for DVT prophylaxis. Quality VTE Deep Vein Thrombosis/Pulmonary Embolism Present on Admission: No
--- NOTE | 2023-03-04 10:53 | CM.DANOTE ---
DCP: Case received, EMR reviewed. Did not meet with patient secondary to being COVID positive, in isolation, but was able to contact patient via his cell phone. Introduced self and role over the phone, and completed DCP assessment based upon information currently available. Patient is a 67 year old male who admitted yesterday afternoon to the care of the hospitalist team. PCP: Dr. Edwards. Payer: confirmed: Medicare/[employer]. Patient came to the hospital via private vehicle secondary to having abdominal pain. Notes indicate that patient had not been feeling well for the last couple of weeks, generalized fatigue. Patient was noted to be in a-flutter with RVR. Rate was in the 130s. Patient had taken a home COVID test which was positive. Patient was diagnosed with atrial flutter. Called patient on his cell phone, since he is in isolation for COVID. Patient is alert, confirmed that he resides here in [place] with his spouse. He is independent at his baseline, and is self employed. Confirmed that his provider is Dr. Edwards. P: DCP to continue to follow. Plan is home when deemed medically stable. Risa Donovan RN/Business Continuity Manager Discharge Planning/Care Management CM Discharge Assessment Start: 03/04/23 10:49 Freq: Status: Active Protocol: Document 03/04/23 10:49 (Rec: 03/04/23 10:53 [id number]) Discharge Planning Assessment Assigned [employer] Risa Donovan RN/Business Continuity Manager Advance Directives? No History Provided By Patient,Medical Record Prior Living Arrangements House Household Members spouse Type of transporation used prior to Drives own vehicle admit Independent with ADL's Yes Is patient alert and oriented? Yes Caregiver for Another No Barriers to Discharge No Discharge Plan Home Transportation Arrangement Spouse Referrals Initiated None needed Whiteboard Updated in Patient Room with No name and ext. # of [employer] Comment Patient is COVID positive, did not enter room. Review Status In Process Next Review Type Continued Stay Review
[2023-03-04] MEDS: METOPROLOL IR 25 MG TABLET 12.5 MG PO ×2 (11:08→16:56)
--- NOTE | 2023-03-04 16:40 | PC.NURSE ---
1630 Ambulated with patient to check heart rate. Rate increased to low 100's while walking, then back to 80-90 when sitting. denies shortness of breath. notified.
[2023-03-04] MEDS: APIXABAN 5 MG TABLET PO (16:55)
--- NOTE | 2023-03-04 16:56 | P.DS_ITS ---
History of Present Illness History of Present Illness Chief complaint: ABD Pain/Hx Diverticulitis Narrative: The patient is a 67-year-old male with a history of diverticulitis and diabetes mellitus 2 presented today with left lower quadrant abdominal pain. The patient has not been feeling well for 1-2 weeks with intermittent fevers and fatigue. He notes a history of diverticulitis. His pain has been progressively worsening over the last several days. Today the pain became bad enough that he elected to come in. The patient was found with CT imaging to have evidence of a 3 mm kidney stone on the left side. In addition the patient was found to be COVID positive but has been having symptoms since about February 22. He denies significant coughing and is requiring 1-2 L of oxygen. Most notably, he was found to be in atrial flutter with a heart rate in the 130s to 150s. The patient was started on diltiazem and given 1 dose of atenolol in the emergency department. The diltiazem was given as a bolus and drip. The patient underwent a CT pulmonary angiogram negative for PE but positive for pulmonary edema which is likely related to his tachycardia. He is given 1 dose of Lasix. He has a history of previous appendectomy. He has been ill for several weeks. He has had intermittent fevers, chills, and fatigue. Some chest heaviness, no cough. His LLQ pain was essentially acute in onset today and felt like his diverticulitis. Discharge Providers Provider Date of admission: 03/03/23 17:50 Discharge Date: 03/04/23 Primary care physician: Lalit Edwards DO Consults: Tele conversation with [facility] cardiology. Discharge provider: Pradeep Tanner MD Summary Hospital Course Discharge Diagnosis: 1. Atrial flutter with rapid response, present on admission and improving. 2. Acute hypoxic respiratory failure with evidence of pulmonary edema, present on admission and active. 3. COVID-19 with symptoms beginning February 22, present on admission and active. 4. Nephrolithiasis with nonobstructing 3 mm kidney stone and abdominal pain, present on admission and active. 5. Remote diverticulitis, not clearly present on admission are active. 6. DM 2, present on admission and active. 7. Testosterone deficiency, present on admission and stable. 8. Hyperlipidemia, present on admission and stable. Hospital Course: The patient was admitted with atrial flutter with RVR. He was rate controlled with a diltiazem drip and transitioned to PO metoprolol. His abdomen pain from nephrolithiasis resolved shortly after admission. He had Covid without respiratory symptoms. He was started on Apixiban BID. His ECHO was unremarkable. He was discussed with cardiology, a face sheet was sent to [facility] cardiology and he will have close outpatient cardiology follow up. Status at Discharge Cognitive/behavioral status at discharge: oriented Functional status at discharge: independent ambulation Overall status at discharge: patient is back to baseline Time Spent with Patient Time spent: Greater than 30 minutes Exam Vital Signs (past 8 hours): - 03/04/23 09:00 03/04/23 09:15 03/04/23 09:30 Pulse Rate 72 78 72 Respiratory Rate 28 H 23 19 Blood Pressure Pulse Oximetry 92 94 95 Oxygen Delivery Method 03/04/23 09:45 03/04/23 10:00 03/04/23 10:09 Pulse Rate 73 76 72 Respiratory Rate 29 H 19 25 H Blood Pressure 117/64 Pulse Oximetry 91 94 94 Oxygen Delivery Method 03/04/23 10:09 03/04/23 10:15 03/04/23 10:30 Pulse Rate 73 74 Respiratory Rate 23 23 Blood Pressure 117/67 Pulse Oximetry 94 90 L Oxygen Delivery Method 03/04/23 10:45 03/04/23 11:00 03/04/23 11:00 Pulse Rate 73 73 Respiratory Rate 17 25 H Blood Pressure 105/64 Pulse Oximetry 90 L 94 Oxygen Delivery Method 03/04/23 11:15 03/04/23 11:30 03/04/23 11:45 Pulse Rate 73 73 73 Respiratory Rate 25 H 29 H 28 H Blood Pressure Pulse Oximetry 97 95 95 Oxygen Delivery Method 03/04/23 12:00 03/04/23 12:00 03/04/23 12:15 Pulse Rate 73 73 Respiratory Rate 22 24 Blood Pressure 112/80 Pulse Oximetry 95 96 Oxygen Delivery Method 03/04/23 12:17 03/04/23 12:30 03/04/23 12:45 Pulse Rate 72 73 Respiratory Rate 26 H 25 H Blood Pressure Pulse Oximetry 96 97 Oxygen Delivery Method Nasal Cannula 03/04/23 13:00 03/04/23 13:00 03/04/23 13:15 Pulse Rate 73 74 Respiratory Rate 24 24 Blood Pressure 110/69 Pulse Oximetry 95 94 Oxygen Delivery Method 03/04/23 13:30 03/04/23 13:45 03/04/23 14:00 Pulse Rate 72 72 72 Respiratory Rate 23 27 H 29 H Blood Pressure 110/69 Pulse Oximetry 96 97 97 Oxygen Delivery Method 03/04/23 14:00 03/04/23 14:15 03/04/23 14:30 Pulse Rate 73 72 Respiratory Rate 28 H 29 H Blood Pressure 115/71 Pulse Oximetry 97 97 Oxygen Delivery Method 03/04/23 14:45 03/04/23 15:00 03/04/23 15:00 Pulse Rate 73 72 Respiratory Rate 25 H 23 Blood Pressure 104/60 Pulse Oximetry 97 94 Oxygen Delivery Method 03/04/23 15:15 03/04/23 15:30 03/04/23 15:45 Pulse Rate 72 74 86 Respiratory Rate 21 30 H 24 Blood Pressure Pulse Oximetry 95 95 95 Oxygen Delivery Method 03/04/23 15:47 03/04/23 16:00 03/04/23 16:01 Pulse Rate 76 79 Respiratory Rate 26 H 27 H Blood Pressure Pulse Oximetry 94 93 Oxygen Delivery Method Room Air 03/04/23 16:01 Pulse Rate Respiratory Rate Blood Pressure 121/76 Pulse Oximetry Oxygen Delivery Method Oxygen Delivery Method Room Air Oxygen Flow Rate 2 Narrative Exam Narrative: NAD, fluent speech. Flat affect. Neck is supple, midline trachea. Lungs are clear, normal effort. Heart is regular. No murmur. Abdomen is non-distended. No leg edema or skin rash. Objective ECG Impression: Atrial flutter with tachycardia (rate 112) Imaging Chest x-ray: Radiologist's impression: No abnormality. CT Chest and Abdomen: Radiologist's impression: 1. No acute pulmonary emboli. 2. Congestive heart failure exacerbation. Interstitial pulmonary edema. 3. Nonspecific mediastinal shotty adenopathy in a relatively symmetric distribution. Findings may potentially simply be reactive lymph nodes. Also possible is symmetric adenopathy related to sarcoidosis. Suggest clinical correlation CT scan - abdomen: Radiologist's impression: 1. Left ureterolithiasis with mild left hydronephrosis and slightly delayed left nephrogram. 2. No other acute intra-abdominal findings. Probable prior appendectomy. Labs 03/04/23 04:04 03/04/23 04:04 Labs: Laboratory Results - last 24 hr 03/03/23 03/04/23 18:25 04:04 WBC 10.3 RBC 4.76 Hgb 14.2 Hct 41.9 MCV 88.0 MCH 29.8 MCHC 33.9 RDW 14.4 Plt Count 267 Sodium 134 L Potassium 3.6 Chloride 104 Carbon Dioxide 22 BUN 23 H Creatinine 0.86 Estimated GFR > 60 BUN/Creatinine Ratio 26.7 H Glucose 145 H Hemoglobin A1c 6.7 H Calcium 9.0 Total Bilirubin 0.6 AST TNP ALT 36 Alkaline Phosphatase 61 Troponin I < 0.012 Total Protein 6.8 Albumin 3.8 Globulin 3.0 Albumin/Globulin Ratio 1.3 Nasal Screen MRSA (PCR) Not detected [facility] Medical History Acute maxillary sinusitis Sebaceous cyst Low testosterone in male Benign skin lesion of multiple sites Medicare annual wellness visit, subsequent Vitamin D deficiency Fatigue Type 2 diabetes mellitus Well adult on routine health check Surgical History Anesthesia History of appendectomy (~2007) Social History household members: spouse Smoking Status: Never smoker Discharge Assessment & Plan Assessment and Plan Assessment: 1. Atrial flutter with rapid response, present on admission and improving. 2. Acute hypoxic respiratory failure with evidence of pulmonary edema, present on admission and active. 3. COVID-19 with symptoms beginning February 22, present on admission and active. 4. Nephrolithiasis with nonobstructing 3 mm kidney stone and abdominal pain, present on admission and active. 5. Remote diverticulitis, not clearly present on admission are active. 6. DM 2, present on admission and active. 7. Testosterone deficiency, present on admission and stable. 8. Hyperlipidemia, present on admission and stable. Plan of Treatment: discharge with metoprolol BID and Apixiban BID. Telephone FU with me tomorrow and cardiology FU at [facility] is being arranged. Covid isolation for the next week. PCP within 6 days. He will set up appt (video) Discharge Plan Discharge Plan Patient Disposition: Home Provider Discharge Comment: Stable for discharge with close cardiology follow up. Discharge orders & Medications Prescriptions: New metoprolol tartrate 25 mg tablet 12.5 mg PO BID Qty: 60 1RF apixaban 5 mg tablet 5 mg PO BID Qty: 60 0RF Continued testosterone [AndroGel] 20.25 mg/1.25 gram (1.62 %) gel in metered-dose pump 2 pump topical DAILY Qty: 75 2RF Rx Instructions: apply 1 pump amount over max area of EACH upper arm and shoulder lovastatin 40 mg tablet 80 mg PO BEDTIME gabapentin 300 mg capsule 600 mg PO PRN PRN (Reason: Pain (Scale Score 4-6)) Discontinued atenolol 50 mg tablet 100 mg PO BEDTIME Medication counseling provided by Pharmacist: No Follow up/Referrals: Lalit Edwards DO [Primary Care Provider] - Diet/Activity/Treatments Diet: Carb-consistent/Diabetic Visit Report/Discharge Packet Stand Alone Forms: Patient Portal/API Discharge Data Primary Care Provider: Lalit Edwards Quality VTE Deep Vein Thrombosis/Pulmonary Embolism Present on Admission: No
[2023-03-06 15:51] LABS: Aspartate Aminotransferase 38 IU/L (17-59)
[2023-03-06 16:17] LABS: Aspartate Aminotransferase 33 IU/L (17-59)
== END 2023-03-04 17:18 | disposition home or self-care (01) | DRG 308 ==
LOC: ED 17:27 → AC 17:51 → ICU 17:55
PROVIDERS: Admitting Provider Hospitalist; Emergency Provider Emergency Medicine; PCP Family Medicine; Referring Provider Emergency Medicine; Visit Provider Hospitalist
DX: I48.92 Unspecified atrial flutter (principal); J96.01 Acute respiratory failure with hypoxia; U07.1 COVID-19; J81.1 Chronic pulmonary edema; N20.0 Calculus of kidney; E11.9 Type 2 diabetes mellitus without complications; E29.1 Testicular hypofunction
CPT/HCPCS: 0241U; 36415; 71045; 71275; 74177; 80053; 81003; 81015; 82550; 82962; 83036; 83605; 83690; 83735; 83880; 84443; 84484; 85025; 85027; 87797; 93005; 93306; 96374; 96375; 96376; 99284; 99285; J1170; J1650; J1885; J1940; J2405; Q9967

== ENCOUNTER → 2023-03-11 11:26 | Outpatient (CLI) | payer MEDICARE, OTHER, SELFPAY ==
[2023-03-03 18:46] VITALS: BMI 28.0
[2023-03-11 11:54] LABS: Add Manual Diff / Slide Review NO; Basophils Absolute Auto 100 /uL (0-100); Basophils Percent Auto 0.9 % (0-2); Eosinophils Absolute Auto 200 /uL (0-450); Eosinophils Percent Auto 3.3 % (2-4); Hematocrit 45.5 % (41-53); Hemoglobin 15.3 g/dL (13.5-17.5); Lymphocytes Absolute Auto 2200 /uL (1100-4500); Lymphocytes Percent Auto 32.7 % (25-40); Mean Corpuscular HGB Conc 33.6 % (30-36); Mean Corpuscular Volume 89.3 fL (80-100); Monocytes Absolute Auto 800 /uL (0-900); Monocytes Percent Auto 11.6 % (3-14); Neutrophils Absolute Auto 3500 /uL (1500-7000); Neutrophils Percent Auto 51.5 % (50-75); Platelet Count 258 X10^3/uL (150-400); Red Cell Distribution Width 13.8 % (11.6-14.8); White Blood Cell Count 6.7 X10^3/uL (4.5-11.0)
[2023-03-11 12:10] LABS: BUN Creatinine Ratio 17.1 (6-22); Blood Urea Nitrogen 14 mg/dL (9-20); Calcium 9.2 mg/dL (8.4-10.2); Carbon Dioxide 26 mmol/L (22-32); Chloride 105 mmol/L (98-107); Estimated Glomerular Filt Rate > 60 mL/min (>60); Glucose 95 mg/dL (80-110); HEMOLYSIS 19 (0-50); Potassium 4.5 mmol/L (3.4-5.1); Sodium 138 mmol/L (137-145)
== END ==
PROVIDERS: PCP Family Medicine; Referring Provider Internal Medicine Cardiovascular Disease; Visit Provider Internal Medicine Cardiovascular Disease
DX: E11.9 Type 2 diabetes mellitus without complications (principal); R73.03 Prediabetes; I48.3 Typical atrial flutter; E78.5 Hyperlipidemia, unspecified
CPT/HCPCS: 36415; 80048; 85025

== ENCOUNTER → 2023-04-16 09:10 | Outpatient (CLI) | payer MEDICARE, OTHER, SELFPAY ==
[2023-03-03 18:46] VITALS: BMI 28.0
[2023-04-16 11:23] LABS: Cholesterol 97 mg/dL (140-199); HDL Cholesterol 33 mg/dL (40-60); Hemoglobin A1C% w Est Avg Glu 6.4 % (4.0-6.0); LDL Cholesterol Calculated 52 mg/dL (<100); Triglycerides 59 mg/dL (35-150)
== END ==
PROVIDERS: PCP Family Medicine; Referring Provider Family Medicine; Visit Provider Family Medicine
DX: E11.9 Type 2 diabetes mellitus without complications (principal); E78.2 Mixed hyperlipidemia
CPT/HCPCS: 36415; 80061; 83036

== ENCOUNTER → 2023-04-24 15:44 | Outpatient (CLI) | payer MEDICARE, OTHER, SELFPAY ==
[2023-03-03 18:46] VITALS: BMI 28.0
--- NOTE | 2023-04-24 15:45 | DI.CT.S_ITS ---
PROCEDURE: CT HEAD/BRAIN WO CON INDICATIONS: Evaluate tremors and declining memory TECHNIQUE: Noncontrast 4.5 mm thick angled axial sections acquired from the foramen magnum to the vertex, with coronal and sagittal reformats. For radiation dose reduction, the following was used: automated exposure control, adjustment of mA and/or kV according to patient size. COMPARISON: None. FINDINGS: Image quality: Mild streak artifact can be seen through the skull base. CSF spaces: Basal cisterns are patent. No extra-axial fluid collections. The ventricles are symmetric in size and shape. Brain: No intracranial bleeds or masses. There is cerebral volume loss for age, with resultant ventricular and sulcal prominence. There are periventricular and deep white matter chronic small vessel ischemic changes. There is intracranial internal carotid artery atherosclerosis. Skull and face: Calvarium and visualized facial bones appear intact, without suspicious lesions. Sinuses: Several mucous retention cysts can be seen within the maxillary sinuses, left more prominent than right. Milder mucosal thickening can be seen elsewhere within the paranasal sinuses. IMPRESSION: Noncontrast head CT within normal limits for age. Dictated by: Salinas Marks M.D. on 04/24/2023 at 17:04 Approved by: Salinas Marks M.D. on 04/24/2023 at 17:05
== END ==
PROVIDERS: PCP Family Medicine; Referring Provider Family Medicine; Visit Provider Family Medicine
DX: G25.0 Essential tremor (principal); R41.3 Other amnesia
CPT/HCPCS: 70450

== ENCOUNTER 2023-07-09 07:28 | Day surgery (SDC) | payer MEDICARE, OTHER, SELFPAY ==
[2023-03-03 18:46] VITALS: BMI 28.0
[2023-07-09] MEDS: LACTATED RINGERS 1,000 ML 150 ML IV (07:30)
[2023-07-09 07:46] VITALS: BP 157/98; PULSE 78; RESP 18; TEMP 36.4; O2SAT 95
--- NOTE | 2023-07-09 08:25 | PM.HP.1 ---
History of Present Illness History of Present Illness Date Patient Seen: 07/09/23 Time Patient Seen: 08:25 Chief complaint: Screening Colonoscopy Narrative: Conor is a 67-year-old man here for colonoscopy for screening purposes. See office note for details [facility] Medical History (Updated 04/21/23 @ 09:19 by Lalit Edwards DO) Essential tremor Acute maxillary sinusitis Sebaceous cyst Low testosterone in male Benign skin lesion of multiple sites Medicare annual wellness visit, subsequent Vitamin D deficiency Fatigue Type 2 diabetes mellitus Well adult on routine health check Surgical History Anesthesia History of appendectomy (~2007) Social History household members: spouse Smoking Status: Never smoker alcohol intake: current Meds Home Medications and Allergies Home Medications Medication Instructions Recorded Confirmed Type apixaban 5 mg tablet 5 mg PO BID #60 tabs 03/04/23 07/09/23 Rx diltiazem HCl 240 mg 240 mg PO DAILY 04/21/23 07/09/23 History capsule,extended release 24 hr rosuvastatin 20 mg tablet 20 mg PO ONCE PM 04/21/23 07/09/23 History gabapentin 300 mg capsule 300 mg PO BID PRN Pain (Scale 06/24/23 07/09/23 Rx Score 4-6) #60 caps Allergies Allergy/AdvReac Type Severity Reaction Status Date / Time No Known Drug Allergies Allergy Verified 07/09/23 07:44 Exam Vital Signs (past 8 hours): - 07/09/23 07:46 Temperature 97.6 F Pulse Rate 78 Respiratory Rate 18 Blood Pressure 157/98 H Pulse Oximetry 95 Oxygen Delivery Method Room Air Oxygen Delivery Method Room Air Const General: No acute distress Resp Effort & Inspection: normal respiratory effort Assessment & Plan Assessment and plan (1) Colon cancer screening: Status: Acute Plan We reviewed the risks and benefits of colonoscopy for colon cancer screening and he would like to proceed.
[2023-07-09 09:00] VITALS: BP 132/83; PULSE 76; RESP 16; TEMP 36.2; O2SAT 98
--- NOTE | 2023-07-09 09:02 | PM.OP.COLON ---
Operative Date/Time/Diagnoses Date of procedure: 07/09/23 Time of procedure: 09:02 Pre-op diagnosis: Colon cancer screening Post-op diagnosis: same Procedure & Clinicians Study performed: Colonoscopy Same procedure as scheduled: Yes Surgeon: Singh Shaffer Procedure Notes Procedure in detail: Surgeon: Singh Shaffer MD Anesthesia: Magen Nascimento Procedure: The patient was brought to the endoscopy suite, placed in left lateral decubitus position. The patient was connected to monitoring devices. A time-out was performed. Sedation was administered. Once the patient was adequately sedated, a digital rectal exam was performed and was normal. The scope was then inserted and advanced to the cecum where the appendiceal orifice was identified and photographed. The scope was then slowly withdrawn over greater than 6 minutes. The mucosa was thoroughly inspected. No abnormalities were found. The scope was retroflexed in the rectum. No abnormalities were seen. The scope was straightened and removed. The patient was awakened and brought to recovery. Scope withdrawal time: 7 minutes Sedation time: 13 minutes EBL: 0 Findings: Normal colon Post-procedure Recommendations: Colonoscopy in 10 years Disposition: PACU
[2023-07-09 09:05] VITALS: BP 128/78; PULSE 71; RESP 16; O2SAT 98
[2023-07-09 09:15] VITALS: BP 130/82; PULSE 78; RESP 16; O2SAT 98
[2023-07-09 09:19] VITALS: BP 132/75; PULSE 77; RESP 16; TEMP 36.2; O2SAT 98
== END 2023-07-09 09:37 | disposition home or self-care (01) ==
PROVIDERS: PCP Family Medicine; Referring Provider Surgery; Visit Provider Surgery
PROC: 0DJD8ZZ Inspection of Lower Intestinal Tract, Via Natural or Artificial Opening Endoscopic (ICD-10-PCS; CPT 45378; principal; 2023-07-09 08:30)
DX: Z12.11 Encounter for screening for malignant neoplasm of colon (principal)
CPT/HCPCS: G0121; J2704

== ENCOUNTER → 2024-02-10 07:07 | Outpatient (CLI) | payer MEDICARE, OTHER, SELFPAY ==
[2023-03-03 18:46] VITALS: BMI 28.0
[2024-02-10 08:19] LABS: Cholesterol 125 mg/dL (140-199); HDL Cholesterol 32 mg/dL (40-60); LDL Cholesterol Calculated 65 mg/dL (<100); Triglycerides 140 mg/dL (35-150)
== END ==
PROVIDERS: PCP Family Medicine; Referring Provider Family Medicine; Visit Provider Family Medicine
DX: E11.9 Type 2 diabetes mellitus without complications (principal); E78.2 Mixed hyperlipidemia; I10 Essential (primary) hypertension
CPT/HCPCS: 36415; 80061

== ENCOUNTER → 2024-03-30 07:05 | Outpatient (CLI) | payer MEDICARE, OTHER, SELFPAY ==
[2023-03-03 18:46] VITALS: BMI 28.0
[2024-03-30 07:55] LABS: Alanine Aminotransferase 52 IU/L (<50); Albumin 4.7 g/dL (3.5-5.0); Albumin Globulin Ratio 1.6 (1.0-2.8); Alkaline Phosphatase 85 U/L (38-126); Aspartate Aminotransferase 39 IU/L (17-59); BUN Creatinine Ratio 21.3 (6-22); Bilirubin Total 0.7 mg/dL (0.2-1.3); Blood Urea Nitrogen 20 mg/dL (9-20); Calcium 9.1 mg/dL (8.4-10.2); Carbon Dioxide 26 mmol/L (22-32); Chloride 104 mmol/L (98-107); Cholesterol 127 mg/dL (140-199); Estimated Glomerular Filt Rate > 60 mL/min (>60); Globulin 2.9 g/dL (1.7-4.1); Glucose 126 mg/dL (80-110); HDL Cholesterol 35 mg/dL (40-60); HEMOLYSIS < 15 (0-50); Hemoglobin A1C% w Est Avg Glu 6.2 % (4.0-6.0); LDL Cholesterol Calculated 64 mg/dL (<100); Potassium 4.2 mmol/L (3.4-5.1); Sodium 139 mmol/L (137-145); Total Protein 7.6 g/dL (6.3-8.2); Triglycerides 138 mg/dL (35-150)
[2024-03-30 08:26] LABS: Prostate Specific Antigen Scrn 0.856 ng/mL (0.1-4.0)
[2024-04-04 07:39] LABS: Percent Free Testosterone 2.75 % (1.50-4.20); Testosterone Total 363.8 ng/dL (264.0-916.0)
== END ==
PROVIDERS: PCP Family Medicine; Referring Provider Family Medicine; Visit Provider Family Medicine
DX: E11.9 Type 2 diabetes mellitus without complications (principal); I50.9 Heart failure, unspecified; Z12.5 Encounter for screening for malignant neoplasm of prostate; R79.89 Other specified abnormal findings of blood chemistry; E78.2 Mixed hyperlipidemia; I11.0 Hypertensive heart disease with heart failure
CPT/HCPCS: 36415; 80053; 80061; 83036; 84402; 84403; G0103

== ENCOUNTER 2024-11-09 10:12 | Emergency (ER) | payer MEDICARE, OTHER, SELFPAY ==
[2023-03-03 18:46] VITALS: BMI 28.0
[2024-11-09 10:30] VITALS: BP 185/105; PULSE 67; RESP 16; TEMP 36.2; O2SAT 97; BMI 28.0
--- NOTE | 2024-11-09 10:36 | DI.RAD.S_ITS ---
PROCEDURE: XR SHOULDER RT MIN 2V INDICATIONS: fall TECHNIQUE: 3 views of the shoulder were acquired. COMPARISON: None. FINDINGS: Bones: No fractures or dislocations. No suspicious bony lesions. Visualized ribs appear intact. Soft tissues: No suspicious soft tissue calcifications. IMPRESSION: No acute bony abnormality. Dictated by: Nasim Card M.D. on 11/09/2024 at 11:33 Approved by: Nasim Card M.D. on 11/09/2024 at 11:34
--- NOTE | 2024-11-09 10:36 | DI.RAD.S_ITS ---
PROCEDURE: XR HUMERUS RT 2V INDICATIONS: fall TECHNIQUE: 2 views of the humerus were acquired. COMPARISON: None. FINDINGS: Bones: No fractures or dislocations. No suspicious bony lesions. Soft tissues: No suspicious soft tissue calcifications. IMPRESSION: No acute bony abnormality. Dictated by: Nasim Card M.D. on 11/09/2024 at 11:25 Approved by: Nasim Card M.D. on 11/09/2024 at 11:33
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
[2024-11-09 14:11] VITALS: BP 163/97; PULSE 72; RESP 16; O2SAT 98
== END 2024-11-09 14:11 | disposition home or self-care (01) ==
PROVIDERS: Emergency Provider Emergency Medicine; PCP Family Medicine
DX: S49.91XA Unspecified injury of right shoulder and upper arm, initial encounter (principal); S09.90XA Unspecified injury of head, initial encounter; W01.0XXA Fall on same level from slipping, tripping and stumbling without subsequent striking against object, initial encounter
CPT/HCPCS: 73030; 73060; 99281; 99283

== ENCOUNTER → 2024-12-29 07:00 | Outpatient (CLI) | payer MEDICARE, OTHER, SELFPAY ==
[2023-03-03 18:46] VITALS: BMI 28.0
[2024-12-29 08:46] LABS: Alanine Aminotransferase 57 IU/L (<50); Albumin 4.8 g/dL (3.5-5.0); Albumin Globulin Ratio 1.6 (1.0-2.8); Alkaline Phosphatase 91 U/L (38-126); Blood Urea Nitrogen 20 mg/dL (9-20); Calcium 9.2 mg/dL (8.4-10.2); Carbon Dioxide 24 mmol/L (22-32); Chloride 102 mmol/L (98-107); Estimated Glomerular Filt Rate > 60 mL/min (>60); Globulin 3.0 g/dL (1.7-4.1); Glucose 120 mg/dL (70-99); HEMOLYSIS 31 (0-50); Potassium 4.5 mmol/L (3.4-5.1); Sodium 137 mmol/L (137-145); Total Protein 7.8 g/dL (6.3-8.2)
[2024-12-29 09:48] LABS: Microalbumi Creatinin Ratio Ur 15.0 ug/mg CR (<30)
[2024-12-29 10:25] LABS: Hemoglobin A1C% w Est Avg Glu 6.2 % (4.0-6.0)
== END ==
PROVIDERS: PCP Family Medicine; Referring Provider Family Medicine; Visit Provider Family Medicine
DX: E11.9 Type 2 diabetes mellitus without complications (principal); E78.2 Mixed hyperlipidemia; I10 Essential (primary) hypertension
CPT/HCPCS: 36415; 80053; 82043; 82570; 83036